=== PATIENT | female | born 1985 | race Caucasian/White ===

== ENCOUNTER 2018-12-29 12:38 | Outpatient (CLI) | payer BC, SELFPAY ==
--- NOTE | 2018-12-29 12:40 | DI.RAD_ITS ---
SYMPTOMS/DIAGNOSIS: RT SIDED CRACKLES, COUGH, R05 PA AND LATERAL CHEST: The heart is normal in size. The lungs are clear. The mediastinal structures and pleura appear intact. CONCLUSION: Normal chest.
== END 2018-12-29 12:58 ==
PROVIDERS: PCP Naturopath; Visit Provider Naturopath
DX: R05 Cough (principal); R09.89 Other specified symptoms and signs involving the circulatory and respiratory systems
CPT/HCPCS: 71046

== ENCOUNTER 2019-01-11 10:41 | Outpatient (REF) | payer SELFPAY | END 2019-01-11 11:01 | LOC: LBN 10:41 | PROVIDERS: PCP Naturopath; Visit Provider Naturopath | DX: Z00.00 Encounter for general adult medical examination without abnormal findings (principal) | CPT/HCPCS: 87480; 87510; 87660 ==

== ENCOUNTER 2019-01-11 15:25 | Outpatient (REF) | payer SELFPAY ==
--- NOTE | 2019-01-11 15:25 | PAPFT_PTH ---
PATIENT: Diamond Malloy LOC: [facility] U#:[id number] AGE/SX: 33/F ROOM: RE01/11/[address]: Yoly Roca : 1985 BED: DIS: 01/11/2019 SPEC #: [id number] RECD: 01/12/19 12:50 STATUS: JOE RENima #: [id number] CARMELINA: 01/11/19 15:[address]: Yoly Roca DEPT: [facility] Cytology RECD BY: Peterson Wallace ENTERED: 01/12/19 12:51 SP TYPE: PAPFT OTHR DR: Jefe Arguello Tissues: 1 - CX/ENDOCX FOR PAP SMEARS Procedures: PAP THIN PREP/UVM Screening HPV DNA PROBE Comments: [id number] (Chlamydia/GC)
[2019-01-15 13:32] LABS: Chlamydia Result Negative; GC Result Negative; Specimen Description SEE COMMENTS
== END 2019-01-11 15:45 ==
LOC: LBN 15:25
PROVIDERS: PCP Naturopath; Visit Provider Naturopath
DX: Z12.4 Encounter for screening for malignant neoplasm of cervix (principal); Z11.51 Encounter for screening for human papillomavirus (HPV); Z11.3 Encounter for screening for infections with a predominantly sexual mode of transmission
CPT/HCPCS: 87491; 87591; 88142; 87624

== ENCOUNTER 2021-03-25 02:29 | Outpatient (CLI) | payer BC, SELFPAY ==
[2021-03-25 11:18] LABS: Kit/Specimen SENT
[2021-03-25 11:22] LABS: Abs Immature Grans 0.02 10^3/uL (0.0-0.06); Absolute Basophil Count 0.04 10^3/uL (0.0-0.2); Absolute Eosinophil Count 0.06 10^3/uL (0.0-0.7); Absolute Lymphocyte Count 1.64 10^3/uL (1.2-3.4); Absolute Monocyte Count 0.51 10^3/uL (0.1-0.8); Absolute Neutrophil Count 4.79 10^3/uL (1.2-6.7); Basophils % 0.6; Eosinophils % 0.8; HCT 36.8 % (36.0-46.0); HGB 12.3 g/dL (11.2-15.7); Immature Grans % 0.3; Lymphocytes % 23.2; MCH 32.1 pg (27.0-33.0); MCHC 33.4 % (32.0-36.0); MCV 96.1 fL (80-95); MPV 9.5 fL (8.0-11.0); Monocytes % 7.2; Neutrophils % 67.9; Nucleated RBC 0 %; Platelet Count 213 10^3/uL (130-400); RBC 3.83 10^6/uL (3.93-5.22); RDW 12.7 % (11.7-14.6); RDW-SD 45.3 fL; WBC 7.06 10^3/uL (4.4-10.8)
[2021-03-25 12:10] LABS: TSH (W/Ref FT4) 0.69 uIU/mL (0.36-3.74)
[2021-03-26 10:35] LABS: Hepatitis B Surface Ag Negative (Negative)
[2021-03-26 10:48] LABS: Varicella IgG Antibody Positive (See Note)
[2021-03-26 10:51] LABS: Hepatitis C Ab w Rflx HCV PCR Negative (Negative)
[2021-03-26 10:52] LABS: Rubella IgG Ab (UVM) Positive (See Note)
[2021-03-26 10:55] LABS: HIV-1/2 Ag & Ab Screen Negative (Negative)
[2021-03-27 10:30] LABS: Syphilis Total Ab w/Reflex Nonreactive (Nonreactive)
[2021-03-31 17:36] LABS: Specimen WB Whole Blood
[2021-04-01 01:39] LABS: Result Summary NEGATIVE; Specimen WB Whole Blood
== END 2021-03-25 02:30 | disposition home or self-care (01) ==
LOC: LBO 02:29
PROVIDERS: PCP Naturopath; Visit Provider Advanced Practice Midwife
DX: Z34.91 Encounter for supervision of normal pregnancy, unspecified, first trimester (principal); Z11.4 Encounter for screening for human immunodeficiency virus [HIV]; Z11.59 Encounter for screening for other viral diseases; Z01.84 Encounter for antibody response examination; Z36.89 Encounter for other specified antenatal screening
CPT/HCPCS: 80307; 81329; 86787; 86803; 86850; 86900; 86901; 87340; 87389; 81220; 84443; 85025; 86762; 86780; 87086

== ENCOUNTER 2021-03-25 15:47 | Outpatient (REF) | payer BC, SELFPAY ==
[2021-03-25 12:32] LABS: *AMPHETAMINES SCREEN URINE Negative (Negative); *BARBITURATES SCREEN URINE Negative (Negative); *BENZODIAZEPINES SCREEN URINE Negative (Negative); Cannabinoids THC Negative (Negative); Cocaine Screen,Urine Negative (Negative); METHADONE URINE SCREEN Negative (Negative); OPIATES URINE SCREEN Negative (Negative)
[2021-03-25 12:35] LABS: Tricyclic Antidepressants Negative (Negative)
[2021-04-01 10:03] LABS: Buprenorphine Negative ng/mL (Cutoff: 5.0); Norbuprenorphine Negative ng/mL (Cutoff: 2.5)
== END 2021-03-25 15:48 | disposition home or self-care (01) ==
LOC: LBN 15:47
PROVIDERS: PCP Naturopath; Visit Provider Advanced Practice Midwife
DX: O09.521 Supervision of elderly multigravida, first trimester (principal); Z3A.11 11 weeks gestation of pregnancy
CPT/HCPCS: 80307; 87086

== ENCOUNTER 2021-04-21 12:08 | Outpatient (REF) | payer BC, SELFPAY ==
[2021-04-22 15:20] LABS: Chlamydia Result Negative (Negative); GC Result Negative (Negative)
== END 2021-04-21 12:09 | disposition home or self-care (01) ==
LOC: LBN 12:08
PROVIDERS: PCP Naturopath; Visit Provider Advanced Practice Midwife
DX: Z34.91 Encounter for supervision of normal pregnancy, unspecified, first trimester (principal); Z11.3 Encounter for screening for infections with a predominantly sexual mode of transmission; Z3A.15 15 weeks gestation of pregnancy
CPT/HCPCS: 87491; 87591

== ENCOUNTER 2021-07-23 02:47 | Outpatient (CLI) | payer BC, SELFPAY ==
[2021-07-23 13:07] LABS: HCT 39.6 % (36.0-46.0); HGB 13.1 g/dL (11.2-15.7); MCH 32.8 pg (27.0-33.0); MCHC 33.1 % (32.0-36.0); MCV 99.2 fL (80-95); MPV 9.7 fL (8.0-11.0); Platelet Count 197 10^3/uL (130-400); RBC 3.99 10^6/uL (3.93-5.22); RDW 12.6 % (11.7-14.6); RDW-SD 46.3 fL; WBC 11.37 10^3/uL (4.4-10.8)
[2021-07-23 13:17] LABS: Glucose,1 Hr (Glucola) 86 mg/dL (80-140)
== END 2021-07-23 02:48 | disposition home or self-care (01) ==
LOC: LBO 02:48
PROVIDERS: PCP Naturopath; Visit Provider Advanced Practice Midwife
DX: Z34.92 Encounter for supervision of normal pregnancy, unspecified, second trimester (principal)
CPT/HCPCS: 36415; 82950; 85027

== ENCOUNTER 2021-08-05 21:00 | Emergency (ER) | payer BC, MEDICAID, SELFPAY ==
[2021-08-05 21:01] VITALS: BP 122/67; PULSE 71; RESP 16; TEMP 36.5; O2SAT 99
[2021-08-05 21:07] VITALS: RESP 16
--- NOTE | 2021-08-05 21:15 | RT.EKG_ITS ---
APPROVED REPORT Exam: Resting ECG Reason for Exam: syncopal episode Patient Location: E HR:54 bpm ECG Measurements Heart Rate 54 AXIS ND 162 P 2 QRSd 80 QRS 39 QT 410 T 21 QTc 390 Conclusion Sinus bradycardia...rate< 60. Sinus. No STEMI. I have reviewed and interpreted ECG and agree with software generated interpretation.
[2021-08-05] MEDS: Lactated Ringers 500 ML IV (21:30)
--- NOTE | 2021-08-05 21:36 | ED.GENADUL_ITS ---
Discharge Plan Disposition Patient Disposition: HOME Condition: Stable Discharge Details Clinical Impression: Syncopal episodes Primary Care Provider: Yoly Roca ED Provider: Criss Bourne Home Meds and New Rx's Prescriptions: Continued prenat.vits,tanner,lwz-[id number]-kgvev Tablet 1 tab PO DAILY RF: 0 Discharge Instructions Instructions: Syncope (ED) Additional Instructions: Your exam and laboratory evaluation are reassuring here today. Your history is most concerning for syncopal episode, likely vasovagal event. Please continue to encourage hydration. Please keep upcoming appointment with women's wellness. If you develop chest pain, shortness of breath, headache, arthritis symptoms or other new/worsening symptoms please seek care urgently once again. Referrals: Yoly Roca [Primary Care Provider] - Discharge Data Discharge Date/Time-TO BE ENTERED AT DEPARTURE: 08/05/21 23:05 Medical Decision Making Patient is a pleasant 36-year-old female presents for chief complaint of loss of consciousness at home. Patient is 30 weeks gestation, G3, P2. Patient states that she was watching a on TV, watching placenta deliver, when she suddenly became lightheaded. States that she had an unusual sensation in both ears. Patient reports she has had syncopal episodes In the past. This was witnessed by her significant other as well as another couple. They lowered her to the ground. They noticed some abnormal movements including shaking her arms as well as clenching of her jaw. In total, they estimate that this episode lasted approximately 30 seconds. Patient states that when she first awoke she was able to speak with EMS providers. No postictal period. She reports that she is been having a normal . Denies any vaginal bleeding or discharge. No cramping. Is not having any pain, did not suffer any trauma. On exam, patient appears nontoxic. Vital signs are stable. Lungs are clear, normal cardiac exam. No neurological deficits noted. As expected given gestational age, no discomfort or trauma noted. Gestational heart rate was 150. Visible movements noted. Patient history is most consistent with a vasovagal syncopal event. With the brief abnormal movements, family has been concerned for potential seizure. However, she did have a prodromal symptoms as well as no postictal phase. This was brought on when she was watching a patient reported that she has not had not had food or drink recently. Glucose currently 89. I do not see indication for imaging at this time. However, will obtain baseline labs as well as EKG. Patient had another episode while here. Significant other reports she has difficulty with needles and was discussing the IV. She became hot and lightheaded. Heart rate dropped into the high 30s patient became hypotensive with a systolic in the 90s. Patient does report that her typical blood pressure runs low and heart rate is typically in the mid to high 50s. Symptoms resolved when supine. Cool cloth on head. Initial recurrent episode, will touch base with women's wellness. EKG reviewed by Dr. Sales. Bradycardic at 54. Other aivna not signficant abnormalities. Labs reviewed. CBC is stable. No significant abnormality on CMP. Consult with Dr. Mendenhall with women's wellness. Reviewed patient's history, presentation and recurrent symptoms. She advised that as history is most consistent with a vasovagal episode, patient does not need to stay in the hospital for continued monitoring. Discussed this with the patient and her significant other. She does have an appointment with women's wellness on Tuesday. Patient is hydrating and eating in the department. She is feeling significantly improved. She will avoid any further noxious external stimuli such as watching birthing videos. Strict return precautions were discussed. All of her questions and concerns were ad dressed and she is in agreement with this plan. HPI General Mode of arrival: EMS . Date/Time Provider Initiated Documentation: 08/05/21 21:28 . Limitations to Documentation: no limitations . Information obtained by: patient, family (Significant other at bedside), EMS, RN notes reviewed and old records reviewed . History of Present Illness 36 year old F presents to the emergency department with the chief complaint of Syncopal episode, described as mild (denies any pain), Patient started experiencing this minute(s) and it has been now resolved (had LOC for estimated 30 seconds, feels at baseline currently). No relieving factors improve symptom(s), Other factors that worsen symptoms (was watching birthing video at time of syncopal episode) . Patient notes syncope; denies confusion, chest pain, cough, fever/chills, headaches, nausea/vomiting, rash, shortness of breath and weakness. Patient did receive the following treatments prior to arrival, none Related Data Home Medications Medication Instructions Recorded Confirmed prenat.vits,tanner,hhc-etzi-ogouv 1 tab PO DAILY 06/03/21 11/19/21 Allergies Allergy/AdvReac Type Severity Reaction Status Date / Time No Known Allergies Allergy Verified 08/07/21 08:26 General Stated Complaint: Dizzy/Sync DANIEL: 2 Review of Systems Constitutional Constitutional: Reports as per HPI, Denies chills, Reports fatigue, Denies fever(s), Denies frequent falls and Denies weakness Eyes Eyes: Reports as per HPI, Denies blurry vision and Denies change in vision ENT Ears, Nose, Mouth, and Throat: Denies vertigo and Denies neck pain Cardiovascular Cardiovascular: Reports as per HPI, Denies chest pain, Reports lightheadedness (felt lightheaded prior to episode), Denies radiating jaw, neck or arm pain, Denies dyspnea and Denies dyspnea on exertion Respiratory Respiratory: Reports as per HPI, Denies chest congestion, Denies cough, Denies dyspnea and Denies dyspnea on exertion Gastrointestinal Gastrointestinal: Reports as per HPI, Denies abdominal pain, Denies change in bowel habits, Denies nausea and Denies vomiting Genitourinary Genitourinary: Reports as per HPI Musculoskeletal Musculoskeletal: Reports as per HPI, Denies back pain, Denies neck pain and Denies numbness Integumentary/Breasts Skin/Breast: Reports as per HPI and Denies rash Neurologic Neurologic: Reports as per HPI, Denies behavioral changes, Denies confusion, Denies vertigo, Denies frequent falls, Denies localized weakness, Denies numbness, Denies sensory deficit and Denies weakness Psychiatric Psychiatric: Denies behavioral changes and Denies confusion Endocrine Endocrine: Reports fatigue [facility] Active Problem List (Updated 08/07/21 @ 09:01 by Yoly Nassar CNM) Bradycardia (Acute) Syncopal episodes (Chronic) Family history of congenital heart disease (Acute) Advanced maternal age during in second trimester (Acute) (Acute) Positive test (Acute) Medical History (Updated 08/07/21 @ 09:01 by Yoly Nassar CNM) Contraception Family History Father Sleep apnea Mother Multiple sclerosis Social History Smoking/Tobacco Use Status: Never Smoking risk assessment performed?: Yes Substance use type: does not use Do you feel safe at home: Yes Do you feel safe in your relationship?: Yes History History 3 Para 2 Hx # Term Pregnancies 2 Multiple births 0 Hx # Pregnancies 0 Ectopic pregnancies 0 AB induced 0 Hx Number of Living Children 2 AB spontaneous 0 Past Pregnancies Del. Date GA/Weeks # Outcome Route Wgt Sex Labor Lgth Anesthes ia Location Prov Complic 08/20/09 39 No Successful vaginal 3231.846 g Male 15 hrs Anea 10/15/11 40 No Successful vaginal 3345.244 g Female 4 hrs Andra Delivery Date: 08/20/09 GBS+, PROM requiring pitocin, labor went fast. Unmedicated , no complications, Sandi Wan Delivery Date: 10/15/11 no complication, GBS neg, ScarlettSandi Randolph Exam Const General: cooperative, healthy appearing, uncomfortable, no acute distress, well developed and well groomed Nutritional Appearance: average body habitus and well nourished Orientation: alert, awake and oriented x3 HENMT Head: normal to inspection, no palpable skull fracture, normocephalic and atraumatic Ears: hearing grossly normal bilaterally, external ears normal and TM's normal bilaterally General nose exam: external nose normal Mouth: oral mucosae normal and moist mucous membranes Throat: posterior oropharynx normal Eyes General: appearance normal, both eyes and all related structures Alignment and Position: alignment normal Periorbital: periorbital findings normal Eyelids: eyelids normal Sclera: sclerae normal Cornea: corneas normal Pupils: PERRL EOM: EOM intact bilaterally Neck Neck: normal visual inspection, full ROM, no lymphadenopathy and no meningeal signs Resp Effort & Inspection: normal respiratory effort, able to speak in complete sentences and no respiratory distress Auscultation: clear to auscultation bilaterally, no rales, no rhonchi and no wheezes Cardio Rate: regular rate Rhythm: regular rhythm Heart Sounds: S1 normal and S2 normal GI Inspection: normal to inspection (normal for gestational age) Palpation: soft, not firm, no guarding, not rigid and nontender Percussion: normal to percussion Auscultation: normal bowel sounds Back/Spine/Pelvis Cervical Spine: normal cervical lordosis and cervical ROM normal Skin General skin exam: no rashes or lesions noted Neuro General: patient alert, patient awake and patient oriented x3 Cranial Nerves: CN's II-XI intact bilaterally Cognition: normal cognition Speech: speech normal Gait: normal gait Motor: muscle tone normal throughout, strength 5/5 throughout, no pronator drift, no movement abnormalities noted and no fasciculations Sensory Exam: no sensory deficits noted Coordination: rigrka-qn-[id number] test normal, svun-ce-fzpv test normal, Romberg test normal, Does not sway with eyes open and rapid alternating movement UE normal Extrem General: normal to inspection, capillary refill normal, no pedal edema and no calf tenderness Psych Appearance: grossly normal and well kempt Mental Status: mental status grossly normal Speech and Movement: speech and movement normal Course Vital Signs Vital signs: Vital Signs Temperature 36.5 C 08/05/21 21:01 Pulse 71 08/05/21 21:01 Respiratory Rate 16 08/05/21 21:01 Blood Pressure 122/67 08/05/21 21:01 Pulse Oximetry 99 08/05/21 21:01 Temperature 36.5 C 08/05/21 21:01 Pulse 71 08/05/21 21:01 Respiratory Rate 16 08/05/21 21:07 Respiratory Effort Non-Labored 08/05/21 21:07 Respiratory Depth Normal 08/05/21 21:07 Respiratory Pattern Normal 08/05/21 21:07 Blood Pressure 122/67 08/05/21 21:01 Pulse Oximetry 99 08/05/21 21:01 Pain Level 0 08/05/21 21:01
--- NOTE | 2021-08-05 21:50 | NUR.NOTE ---
Nursing Note: RN was applying stickers for EKG, patient reported that she began feeling warm and dizzy. Patient placed in supine position and notified Criss LUGO. Heart rate noted to drop as low as 39 BPM.
[2021-08-05 21:52] LABS: Absolute Basophil Count 0.04 10^3/uL (0.0-0.2); Absolute Eosinophil Count 0.06 10^3/uL (0.0-0.7); Absolute Lymphocyte Count 1.98 10^3/uL (1.2-3.4); Absolute Monocyte Count 0.73 10^3/uL (0.1-0.8); Absolute Neutrophil Count 6.46 10^3/uL (1.2-6.7); Basophils % 0.4; Eosinophils % 0.6; HCT 38.4 % (36.0-46.0); HGB 13.1 g/dL (11.2-15.7); Immature Grans % 1.1; Lymphocytes % 21.1; MCH 33.2 pg (27.0-33.0); MCHC 34.1 % (32.0-36.0); MCV 97.2 fL (80-95); MPV 10.3 fL (8.0-11.0); Monocytes % 7.8; Nucleated RBC 0 %; Platelet Count 215 10^3/uL (130-400); RBC 3.95 10^6/uL (3.93-5.22); RDW 12.3 % (11.7-14.6); RDW-SD 44.4 fL; WBC 9.37 10^3/uL (4.4-10.8)
[2021-08-05 22:21] LABS: ALT 23 U/L (14-59); AST 31 U/L (15-37); Alkaline Phosphatase 66 U/L (46-116); Anion Gap 7.5 mmol/L (3-11); BUN 11 mg/dL (7-18); Bilirubin, Total 0.2 mg/dL (0.2-1.0); CO2 28.5 mmol/L (21.0-32.0); CREATININE 0.6 mg/dL (0.55-1.02); Calcium 8.5 mg/dL (8.5-10.1); Chloride 106 mmol/L (98-107); Glucose 82 mg/dL (74-106); Magnesium 2.1 mg/dL (1.8-2.4); Potassium 3.9 mmol/L (3.5-5.1); Sodium 142 mmol/L (136-145); TSH 1.46 uIU/mL (0.36-3.74); Total Protein 6.5 g/dL (6.4-8.2)
[2021-08-05 22:58] VITALS: BP 107/57; PULSE 68; RESP 16; O2SAT 99
== END 2021-08-05 23:05 | disposition home or self-care (01) ==
PROVIDERS: Emergency Provider Physician Assistant; PCP Naturopath
DX: O26.892 Other specified pregnancy related conditions, second trimester (principal); R55 Syncope and collapse; Z3A.30 30 weeks gestation of pregnancy
CPT/HCPCS: 80053; 93005; 96360; 99284; 83735; 84443; 85025; 93010

== ENCOUNTER 2021-08-20 00:19 | Outpatient (CLI) | payer BC, MEDICAID, SELFPAY ==
--- OUTSIDE RECORDS SUMMARY | 2021-08-20 00:22 | XMS_ITS ---
:1985 External Reference #:[id number] Author Care Team Providers Name Role Phone Abelino Primary Care Provider Unavailable Allergies None recorded. Medications Name Status Start Date Stop Date ? ? ciprofloxacin 0.3 % eye drops Active ? No t available penicillin V potassium 250 mg tablet Active ? Not available Tri-Sprintec (28) 0.18 mg(7)/0.215 Active ? Not available mg(7)/0.25 mg(7)-35 mcg tablet Problems Name Status Onset Date Source ? Vitamin D Deficiency Active 08/20/2020 ? Folliculitis Active 08/20/2020 ? Hyperlipidemia Screening Active 08/20/2020 ? Trying to Conceive Active 08/20/2020 ? Procedures Date Name Performed by ? 12/29/2018 XR, Chest, 2 View Xray [facility] [address] [place], [place] [address] (Work Place) Results Lab Results Date Name Specimen Result Interpretation Description Value Range Status Address ? 04/05/2019 HIV-1 ? HIV non-reactive non-reactive F inal [facility], Ag/Ab Health Serum ([facility] en[facility] es): [address] Past Encounters 11/04/2020 Trying to Conceive Yoly Roca, [place]: [address] [place] [address], Ph. [phone] 08/06/2020 Folliculitis; Vitamin D Deficiency; Tryi ng to Conceive; Hyperlipidemia Screening Yoly Roca, [place]: [address] [place] [address], Ph. [phone] Social History None recorded. Vaccine List None recorded. Plan of Care Patient Instructions 1. continue taking pro 2 c aps 2xday 2. add b12/folate by Seroyal- chewable 1 tab/day 3. PAP and bloodwork look great- cholest juan and thyroid looks great Let me know if you need my assistance wi th any furture preganacy/or trying to conceive if needed If your partner would like to try a supp lement for support please have him call to make general health appointment to establish care. 1. ALlimax 450mg- 1 cap 3xday for f olliculitis Get Antibiotic Rx for skin- by Dr. Lee od 2. Designs for health- pro 2 cap s 2xday 3. nordic natural prodha 1000 1 cap 2xda y 4. labwork Reminders Provider Appointments None recorded. ? ? Lab None recorded. ? ? Referral None recorded. ? ? Procedures None recorded. ? ? Surgeries None recorded. ? ? Imaging None recorded. ? ? Vitals 08/06/2020 01:45PM ESTABLISHED PATIENT 45 Weight Blood Pressure 147 lbs 106/66 mm[Hg] 01/11/2019 02:45PM ESTABLISHED PATIENT 45 Height Weight BMI Blood Pressure 5 ft 5 in 134 lbs 22.3 kg/m2 110/66 mm[Hg] 10/11/2017 02:45PM NEW PATIENT 59 Height Weight BMI Blood Pressure 5 ft 4 in 138 lbs 23.7 kg/m2 104/68 mm[Hg]
--- NOTE | 2021-08-20 07:00 | DI.US_ITS ---
Exam(s) US OB LJ WEIGHT EXAM: US OB LJ WEIGHT CLINICAL HISTORY: interval growth,advanced maternal age,z34.90. TECHNIQUE: Transabdominal obstetrical ultrasound was performed. COMPARISON: US SURVEY*(P) from 05/18/2011 FINDINGS: There is a single viable intrauterine gestation with cardiac activity identified-143 bpm The fetus is presently in cephalic position . Amniotic fluid: There is a normal amount of amniotic fluid with an LJ of 15.9cm. Placental location: The placenta is anterior-fundal, grade 1,with no evidence of placenta previa. Dating parameters place this at approximately 33 weeks and 2 days gestational age, implying JATINDER of October 06, 2021. BPD measures 33 weeks and 5 days HC measures 33 weeks and 6 days AC measures 31 weeks 3 days FL measures 34 weeks and 2 days Estimated weight is 1044 gm-4 pounds 8 ounces Fetus is at the 46th percentile on the Hadlock scale. IMPRESSION:: Viable 3rd trimester gestation, as described above. Fetus is in cephalic position. Placenta anterior-fundal No evidence of placenta previa. Normal amount of amniotic fluid DATA REPOSITORY:
== END 2021-08-20 00:39 ==
PROVIDERS: PCP Naturopath; Visit Provider Advanced Practice Midwife
DX: O09.523 Supervision of elderly multigravida, third trimester (principal)
CPT/HCPCS: 76816

== ENCOUNTER 2021-08-25 09:46 | Outpatient (CLI) | payer BC, MEDICAID, SELFPAY ==
--- NOTE | 2021-08-25 09:45 | RT.EKG_ITS ---
APPROVED REPORT Exam: Resting ECG Reason for Exam: aguila Patient Location: O HR:74 bpm ECG Measurements Heart Rate 74 AXIS ID 133 P -6 QRSd 83 QRS 69 QT 367 T 31 QTc 408 Conclusion Sinus rhythm...normal P axis, V-rate 50- 99 Baseline wander in lead(s) V5 Normal Electrocardiogram
== END 2021-08-25 09:47 | disposition home or self-care (01) ==
LOC: DI.CARD 09:47
PROVIDERS: PCP Naturopath; Visit Provider Internal Medicine Cardiovascular Disease
DX: R00.1 Bradycardia, unspecified (principal)
CPT/HCPCS: 93010

== ENCOUNTER 2021-09-17 11:49 | Outpatient (REF) | payer BC, MEDICAID, SELFPAY ==
[2021-09-17 15:49] LABS: *AMPHETAMINES SCREEN URINE Negative (Negative); *BARBITURATES SCREEN URINE Negative (Negative); *BENZODIAZEPINES SCREEN URINE Negative (Negative); Cannabinoids THC Negative (Negative); Cocaine Screen,Urine Negative (Negative); METHADONE URINE SCREEN Negative (Negative); OPIATES URINE SCREEN Negative (Negative)
[2021-09-17 15:53] LABS: Tricyclic Antidepressants Negative (Negative)
[2021-09-25 12:23] LABS: Buprenorphine Negative ng/mL (Cutoff: 5.0); Norbuprenorphine Negative ng/mL (Cutoff: 2.5)
== END 2021-09-17 11:50 | disposition home or self-care (01) ==
LOC: LBN 11:49
PROVIDERS: PCP Naturopath; Visit Provider Advanced Practice Midwife
DX: Z34.93 Encounter for supervision of normal pregnancy, unspecified, third trimester (principal)
CPT/HCPCS: 80307; 87081

== ENCOUNTER 2021-10-16 07:26 | Outpatient (CLI) | payer MEDICAID, SELFPAY ==
[2021-10-16 11:40] VITALS: BP 114/74; PULSE 76
[2021-10-16 11:46] VITALS: BP 114/74; PULSE 76
[2021-10-16 11:54] VITALS: BP 114/74; PULSE 76
[2021-10-16 12:08] VITALS: BP 114/74; PULSE 76; TEMP 36.8
--- NOTE | 2021-10-16 12:12 | W.OBNST ---
Date of service: 10/16/21 Time of Service: 12:12 NST Evaluation Reason for NST Reasons for Nonstress Test: POSTDATES and ADVANCED MATERNAL AGE Gestational Age Gestational Age in Weeks and Days: 40 Weeks and 5Days Test and Monitor Explained Test/Monitor Explained: Test Explained, Monitor Explained and Patient Verbalized Understanding Vital Signs Blood Pressure: 114/74 Pulse: 76 Temperature: 98.2 F Urine Results Urine Protein: Negative Urine Ketones: Negative Urine Glucose: Negative Urine Blood: Negative NST Information Date on Monitor: 10/16/21 Time on Monitor: 11:43 Date off Monitor: 10/16/21 Time off Monitor: 12:06 Total Time on Monitor: 23 NST Interventions: PO Hydration Contraction Frequency: x1 NST Evaluation Patient States Movement: Present Variability: Moderate 6-25 bpm Accelerations: 15x15 Decelerations: None NST Results: Reactive Note NST Note Note: NST at 40w5d is reactive and reassuring. Will continue present management. RTO as scheduled or to call electric meter inspector exceptional children teacher assistant if signs of labor. LJ done today as well by Sandi Jin CNM. STACY NST Reviewed and Verified by: Yoly Cantu
[2021-10-16 12:14] VITALS: BP 114/74; PULSE 76; TEMP 36.8
== END 2021-10-16 12:32 | disposition home or self-care (01) ==
LOC: BCD 07:33 → OBS 11:25
PROVIDERS: PCP Naturopath; Visit Provider Advanced Practice Midwife
DX: O48.0 Post-term pregnancy (principal); O09.523 Supervision of elderly multigravida, third trimester; Z3A.40 40 weeks gestation of pregnancy
CPT/HCPCS: 59025

== ENCOUNTER 2021-10-17 20:42 | Observation (INO) | payer MEDICAID, SELFPAY ==
[2021-10-17 20:40] VITALS: BP 126/78; PULSE 72; RESP 17; TEMP 36.9
--- NOTE | 2021-10-17 20:44 | HPE_ITS ---
Date of service: 10/17/21 Time of Service: 20:44 Assessment and Plan Assessment and plan (1) Uterine contractions: Status: Acute Assessment and plan: 1. Observation status 2. Is scheduled for induction in 5 days 3. Will reassess in 2 hours or prn for progress 4. Offered to allow for sleep with reassessment in am if she desires, plan at this time is to reassess in 2 hours. 5. COVID screening done as patient has history of 4 hour labor. 6. Will delay blood work at this time, no IV access is required by history or current condition. STACY OB-HPI Labor/Delivery History of Present Illness Reason for Visit: RULE OUT LABOR Chief Complaint: Uterine Contractions. JATINDER Calculator Estimated Delivery Date Method Current WG Current Estimate 10/11/21 LMP (Certain) 40w 6d Other Estimates 10/12/21 Ultrasound #1 40w 5d Comments: Cuca and her , Rei, present for labor check. Reports some cramping contractions for past few hours. Denies LOF or bloody show. Baby has been active. STACY History of Present Expected Delivery Route/Plan - CNM FOB/partner - Rei Ribeiro (his second child, their first together) BG GBS negative Desires low intervention labor and , FOB might want to catch baby Pt nor FOB do not want to cut cord or see/take placenta Specific Issues/Plan 1. AMA, age 36 at delivery, accepts level 2 sono and MFM consult at [facility] [place] [facility] @ 19-20 wks 1a. 20 week anatomy US all WNL no structural abnormalities identified 1b. US at 32 weeks shows EFW 46%ile. LJ 15.9 2. Desires all genetic screening, drawn 03/25/21. CF/SMA negative; [place] low prob x3, female fetus 3. FOB and other relatives w/hx webbed toes, paternal half-brother w/hypoplastic left heart requiring surgery at . 3a. Pt accepts telegenetics appt @ [facility] [place] [place], level 2 sono and MFM consult, done 05/26/21; nml sono, notes scanned into EMR 3b. [facility] recommends 32 week scan for interval growth at 32 weeks. No other recommendations. 4. Pt and FOB are COVID vaccinated. 5. Syncopal episode at 31 wks, f/up with cardiology 08/25 5a. Cardiology visit reveals no concerns.. Review of Systems All systems reviewed & are unremarkable except as noted in HPI and below PFSH All Active Problems (Updated 10/17/21 @ 20:48 by Yoly Cantu CNM) Uterine contractions (Acute) Bradycardia (Acute) associated with syncopal event Syncopal episodes (Chronic) Family history of congenital heart disease (Acute) Advanced maternal age during in second trimester (Acute) (Acute) Medical History Contraception Positive test Family History Father Sleep apnea Mother Multiple sclerosis Social History Smoking/Tobacco Use Status: Never Smoking risk assessment performed?: Yes Substance use type: does not use Do you feel safe at home: Yes Do you feel safe in your relationship?: Yes History History 3 Para 2 Hx # Term Pregnancies 2 Multiple births 0 Hx # Pregnancies 0 Ectopic pregnancies 0 AB induced 0 Hx Number of Living Children 2 AB spontaneous 0 Past Pregnancies Del. Date GA/Weeks # Outcome Route Wgt Sex Labor Lgth Anesthes ia Location Prov Complic 08/20/09 39 No Successful vaginal 7 lb 2 oz Male 15 hrs Anea 10/15/11 40 No Successful vaginal 7 lb 6 oz Female 4 hrs Andra Delivery Date: 08/20/09 GBS+, PROM requiring pitocin, labor went fast. Unmedicated , no complications, Katie Wan Delivery Date: 10/15/11 no complication, GBS neg, Katie Pimentel Meds Allergies and Home Medications Allergies Allergy/AdvReac Type Severity Reaction Status Date / Time No Known Allergies Allergy Verified 10/17/21 20:46 Home Medications Medication Instructions Recorded Confirmed Type prenat.vits,tanner,ldn-fmms-trooo 1 tab PO DAILY 02/19/21 10/17/21 History Exam Physical Exam Vital signs: Pulse BP 72 126/78 10/17/21 20:40 10/17/21 20:40 Vital Signs Reviewed: Yes Constitutional Constitutional: no acute distress Detailed Labor and Delivery Exam Dilation: 2 Effacement (%): 75 station: -2 Position: ROT Cervix position: mid Consistency: medium Turk Score: Cervical Points Exam 0 1 2 3 Dilation Closed 1-2cm 3-4 cm 5-6cm Effacement 0-30% 40-50% 60-70% 80% Consistency Firm Medium Soft Station -3 -2 -1,0 +1,+2 Position Posterior Mid Anterior TURK Score(Cervical Ripeness Score): 6 Amniotic Membrane Status: Intact Contraction Frequency(min): 3 Contraction Duration(sec): 60 Contraction Intensity: Mild/Moderate Fetus A Heart Rate Baseline: 125 Monitor Accelerations: Absent Monitor Decelerations: None Variability: Moderate (6-25 BPM) Presentation: Vertex Categories: Category I Est. Weight: 7 lb HEENT Exam HEENT Exam: Normal Neck Exam Neck Exam: Not Done Chest/Brest/Axilla Exam Chest Exam: Normal Breast Exam Breast Exam: Not Done Respiratory Exam Respiratory Exam: Normal Cardiovascular Exam Cardiovascular Exam: Normal Abdominal Exam Abdominal Exam: Normal Rectal Exam Rectal Exam: Not Done Exam Exam: Normal Extremities Exam Extremities Exam: Normal Back/Spine/Pelvis Exam Back Exam: Not Done Pelvis Adequate: Yes Skin Exam Skin Exam: Normal Neurological Exam Neurological Exam: Normal Psychiatric Exam Psychiatric Exam: Normal Results Results Group Beta Strep: Negative Blood Type: O+ Rubella Status: Immune Varicella Immunity: Immune Risk Assessment Risk for Shoulder Dystocia Historical/Initial OB: NEGATIVE FOR: Pelvic Abnormality, Pre- BMI>30, Previous Shoulder Dystocia or Previous Macrosomia 40 Weeks: NEGATIVE FOR: EFW> 4500 gms, Maternal Weight Gain >40lb or Post Dates Increased Risk?: No Delivery Plan @ 36wks: spont labor, Delivery Plan @ 40 wks: IOL at 41w3d if not in active labor tonight. KH Risk for Pre-Eclampsia Daily Dose ASA Indicated: No Date Initiated/Initials: not indicated Yes, if one or more: NEGATIVE FOR: Hx Pre-E/Gest HTN, Chronic HTN, Multiple Gestation, Pre-gestational DM, Renal Disease, Systemic Lupus or APA Syndrome Yes, if 2 or more: POSITIVE FOR: Age>= 35 yrs; NEGATIVE FOR: Nulliparity, >10yr btwn pregnancies (daughter is 9 at conception), BMI>30, ethinicty, Mother/Sister w/ Pre-E or Previous IUGR Risk for Post- Hemorrhage Initial: NEGATIVE FOR: Multiple Gestation, Previous PPH, Known Clotting Deficiency, Grand Multiparity or Anticoagulation At Risk?: No Risks Reviewed Risks Reviewed Upon Admission: Yes
[2021-10-17 20:54] LABS: Source Nasal/Nares
[2021-10-17 21:32] LABS: COVID-19 PCR Negative (Negative)
--- NOTE | 2021-10-17 22:54 | W.PM.OBNL1 ---
Date of service: 10/17/21 Time of Service: 22:54 Pelvic Exam Comments: deferred Contractions Contraction Frequency(min): 2-4 Contraction Duration(sec): 60 Intensity: Mild Fetus A Monitor: Doppler Heart Rate Baseline: 125 Assessment and Plan Assessment and plan (1) Uterine contractions: Status: Acute Objective Temp Pulse Resp BP 98.4 F 72 17 126/78 10/17/21 20:40 10/17/21 20:40 10/17/21 20:40 10/17/21 20:40 Laboratory Results COVID-19 Source Nasal/Nares 10/17/21 20:35 SARS-CoV-2 (PCR) Negative (Negative) 10/17/21 20:35 Subjective Interval history since last seen: Cuca reports that contractions have not changed but feels they are too frequent to go home. she is going to try to rest and nursing staff will inform CNM when patient is awake and more uncomfortable. Interventions Other (will allow for rest and reassessment as indicated by patient status or in am. STACY)
[2021-10-17 23:09] VITALS: BP 112/66; PULSE 54; RESP 16; TEMP 36.5
--- NOTE | 2021-10-18 08:00 | W.PM.OBNL1 ---
Date of service: 10/18/21 Time of Service: 08:00 Pelvic Exam Comments: deferred Contractions Monitor Mode: Palpation Contraction Frequency(min): irregular Fetus A Assessment Note: will obtain heart tracing after patient has had breakfast and discussed options. STACY Assessment and Plan Assessment and plan (1) 41 weeks gestation of : Status: Acute Assessment and plan: 1. discussed expectant management as best option for potentially going into labor in next few days on her own 2. discussed anxiety related to previous labor being quick and that it has been 10 years and that may not be as likely this 3. discussed option of induction today if desired due to anxiety about laboring at home and being 41 weeks gestation, patient is considering this but is also hoping to avoid pitocin which may not be possible 4. risks, benefits and alternatives to induction as well as possible needed agents or methods reviewed, expectant management encouraged 5. Will notify OB physician infection prevention coordinator if patient decides to remain for induction vs going home or will discharge to home with education on signs of labor and when to call. 6. if patient is discharged, she has planned induction at 41w3d. STACY Objective Temp Pulse Resp BP 97.7 F 54 L 16 112/66 10/17/21 23:09 10/17/21 23:09 10/17/21 23:09 10/17/21 23:09 Laboratory Results COVID-19 Source Nasal/Nares 10/17/21 20:35 SARS-CoV-2 (PCR) Negative (Negative) 10/17/21 20:35 Subjective Interval history since last seen: Cuca feels well rested this morning. She reports she did wake a few times with painful contractions but not consistent. She admits to being very anxious about going home due to last labor being only 4 hours long. We discussed that she is not in labor at this time and her body seems to be preparing well for that. I reviewed that it is reasonable to go home and return with active labor or SROM and that no exam this morning would be necessary as she slept through the night unmedicated. She is asking about possibly remaining for induction of labor vs going home. We discussed that if she feels that would decrease her anxiety it is possible to do that but as she is hoping to avoid pitocin, I did talk with her that I cannot promise if she stays for induction that she will not require pitocin for labor. She and Rei will talk over the options and inform us their desires. Risks and benefits of IOL have already been reviewed with patient. STACY
--- NOTE | 2021-10-18 08:07 | NUR.NOTE ---
CNM and RN at bedside to discuss plan. Pt states contractions have become less frequent and less intense. Pt not in labor at this time. Pt given option to stay and move forward with induction or go home and come back when in labor/or for scheduled induction on 10/21. Pt and discussing options in private. will notify nurse when decision is made. Note:
--- NOTE | 2021-10-18 09:39 | DSE_ITS ---
Date of service: 10/18/21 Time of Service: 09:40 DS: Diagnosis Discharge Diagnosis (1) 41 weeks gestation of : Status: Acute Discharge Plan Disposition Patient Disposition: HOME Condition: Good Discharge Details Reason For Visit: RULE OUT LABOR Admit Date/Time: 10/17/21 20:42 Admit Provider: Yloy Cantu Attending Provider: Yoly Cantu Primary Care Provider: Yoly Roca Hospital Course Hospital Course: observation over night for irregular uterine contractions and patient's concern about her 10 years ago being quick. She has not had LOF or bloody show. Some old blood on toilet paper this morning after voiding but none since. She is scheduled for IOL on 10/22 at 41w3d. FHR tracing is CAT I. Last VE /. Home Meds and New Rx's Prescriptions: Continued prenat.vits,tanner,[id number] Tablet 1 tab PO DAILY RF: 0 Discharge Instructions Activity:: Activity as Tolerated Equipment/Supplies:: No Equipment Needed Diet:: As Tolerated Discharge Orders Discharge Orders: Discharge Order (Routine); Ordered 10/18/21 Ordered By: Yoly Cantu Procedure Procedures: Other (Observation for potential labor, not in active labor. Discharged to home with labor warning signs and will return as scheduled or prn. ) OB:DS Summary Summary Vaginal Delivery Method: Other (antepartum discharge. ) Contraception Discussed Contraception Discussed: No, Status at Discharge Functional status at discharge: independent ambulation Overall status at discharge: patient is back to baseline Mental Status: mental status grossly normal Speech and Movement: speech and movement normal Mood: congruent mood Affect: normal affect Time Spent with Patient providing and/or coordinating discharge services: Less than 30 minutes Quality: AMI Clinical Trial Participant: No Exam Physical Exam Vital signs: Temp Pulse Resp BP 97.7 F 54 L 16 112/66 10/17/21 23:09 10/17/21 23:09 10/17/21 23:09 10/17/21 23:09 Vital Signs Reviewed: Yes Constitutional Constitutional: no acute distress HEENT Exam HEENT Exam: Normal Neck Exam Neck Exam: Normal Respiratory Exam Respiratory Exam: Normal Cardiovascular Exam Cardiovascular Exam: Normal Fundal Exam Comment: Fundus size equals dates. Rectal Exam Rectal Exam: Not Done Extremities Exam Extremity Exam: Normal Back/Spine/Pelvis Exam Back Exam: Not Done Skin Exam Skin Exam: Normal Neurological Exam Neurological Exam: Normal Psychiatric Exam Psychiatric Exam: Normal PFSH All Active Problems (Updated 10/18/21 @ 08:05 by Yoly Cantu CNM) 41 weeks gestation of (Acute) Uterine contractions (Acute) Bradycardia (Acute) associated with syncopal event Syncopal episodes (Chronic) Family history of congenital heart disease (Acute) Advanced maternal age during in second trimester (Acute) (Acute) Medical History Contraception Positive test Family History Father Sleep apnea Mother Multiple sclerosis Social History Smoking/Tobacco Use Status: Never Smoking risk assessment performed?: Yes Substance use type: does not use Do you feel safe at home: Yes Do you feel safe in your relationship?: Yes History History 3 Para 2 Hx # Term Pregnancies 2 Multiple births 0 Hx # Pregnancies 0 Ectopic pregnancies 0 AB induced 0 Hx Number of Living Children 2 AB spontaneous 0 Past Pregnancies Del. Date GA/Weeks # Outcome Route Wgt Sex Labor Lgth Anesthes ia Location Prov Complic 08/20/09 39 No Successful vaginal 7 lb 2 oz Male 15 hrs Anea 10/15/11 40 No Successful vaginal 7 lb 6 oz Female 4 hrs Andra Delivery Date: 08/20/09 GBS+, PROM requiring pitocin, labor went fast. Unmedicated , no complications, Katie Wan Delivery Date: 10/15/11 no complication, GBS neg, Katie Pimentel DS: Data Vitals/I&O Vitals and I&O: Vital Signs Temperature 97.7 F 10/17/21 23:09 Pulse 54 L 10/17/21 23:09 Pulse Rhythm Regular 10/17/21 20:51 Respiratory Rate 16 10/17/21 23:09 Respiratory Depth Normal 10/17/21 20:51 Blood Pressure 112/66 10/17/21 23:09 Intake & Output 10/17/21 10/17/21 10/18/21 11:59 23:59 11:59 Weight 166 lb Data Completed and Pending Labs on day of discharge: Labs from last 24 hours 10/17/21 20:35 COVID-19 Source Nasal/Nares SARS-CoV-2 (PCR) Negative
--- NOTE | 2021-10-18 09:45 | NUR.NOTE ---
RN and CNM at bedside to re-discuss plan. Pt would like to go home and let her body go into labor on it's own at this time. RN will get NST before discharging home per CNM verbal Nursing Note:
== END 2021-10-18 10:00 | disposition home or self-care (01) | DRG 833 ==
PROVIDERS: Admitting Provider Advanced Practice Midwife; PCP Naturopath; Visit Provider Advanced Practice Midwife
DX: O47.1 False labor at or after 37 completed weeks of gestation (principal); O09.523 Supervision of elderly multigravida, third trimester; Z3A.40 40 weeks gestation of pregnancy; Z82.79 Family history of other congenital malformations, deformations and chromosomal abnormalities
CPT/HCPCS: 87635; 99211; G0378

== ENCOUNTER 2021-10-18 17:09 | Inpatient (IN) | payer MEDICAID, SELFPAY ==
[2021-10-18] VITALS (14 sets, daily range): BP systolic 111–129; BP diastolic 67–84; PULSE 65–102; RESP 16–20; TEMP 36.5–37; O2SAT 94–98
[2021-10-18 16:58] LABS: Source Nasal/Nares
--- NOTE | 2021-10-18 17:08 | HPE_ITS ---
Date of service: 10/18/21 Time of Service: 17:00 Assessment and Plan Assessment and plan (1) Active labor at term: Start date: 10/18/21 Start time: 17:00 Status: Acute Assessment and plan: labor began at 1200 today after a 24 hour latent phase. Patient is working well with contractions. Significant other, Rei, is p resent and supportive. Expect NVD. KH OB-HPI Labor/Delivery History of Present Illness Reason for Visit: RULE OUT LABOR Chief Complaint: Uterine Contractions. JATINDER Calculator Estimated Delivery Date Method Current WG Current Estimate 10/11/21 LMP (Certain) 41w 0d Other Estimates 10/12/21 Ultrasound #1 40w 6d Comments: Contractions became consistent and more intense at 1200 today, has had bloody show, no LOF. Baby has been active. STACY History of Present Expected Delivery Route/Plan - CNM FOB/partner - Rei Ribeiro (his second child, their first together) BG GBS negative Desires low intervention labor and , FOB might want to catch baby Pt nor FOB do not want to cut cord or see/take placenta Specific Issues/Plan 1. AMA, age 36 at delivery, accepts level 2 sono and MFM consult at [facility] @ 19-20 wks 1a. 20 week anatomy US all WNL no structural abnormalities identified 1b. US at 32 weeks shows EFW 46%ile. LJ 15.9 2. Desires all genetic screening, drawn 03/25/21. CF/SMA negative; [place] low prob x3, female fetus 3. FOB and other relatives w/hx webbed toes, paternal half-brother w/hypoplastic left heart requiring surgery at . 3a. Pt accepts telegenetics appt @ [facility], level 2 sono and MFM consult, done 05/26/21; nml sono, notes scanned into EMR 3b. [facility] recommends 32 week scan for interval growth at 32 weeks. No other recommendations. 4. Pt and FOB are COVID vaccinated. 5. Syncopal episode at 31 wks, f/up with cardiology 08/25 5a. Cardiology visit reveals no concerns.. Assessment: History Reviewed & Current Informed Consent Informed Consent: Other (normal labor and water if desired. STACY) Review of Systems All systems reviewed & are unremarkable except as noted in HPI and below PFSH All Active Problems (Updated 10/18/21 @ 17:12 by Yoly Cantu CNM) Active labor at term (Acute) 41 weeks gestation of (Acute) Uterine contractions (Acute) Bradycardia (Acute) associated with syncopal event Syncopal episodes (Chronic) Family history of congenital heart disease (Acute) Advanced maternal age during in second trimester (Acute) (Acute) Medical History Contraception Positive test Family History Father Sleep apnea Mother Multiple sclerosis Social History Smoking/Tobacco Use Status: Never Smoking risk assessment performed?: Yes Drug use: Never Substance use type: does not use Do you feel safe at home: Yes Do you feel safe in your relationship?: Yes History History 3 Para 2 Hx # Term Pregnancies 2 Multiple births 0 Hx # Pregnancies 0 Ectopic pregnancies 0 AB induced 0 Hx Number of Living Children 2 AB spontaneous 0 Past Pregnancies Del. Date GA/Weeks # Outcome Route Wgt Sex Labor Lgth Anesthes ia Location Prov Complic 08/20/09 39 No Successful vaginal 7 lb 2 oz Male 15 hrs Anea 10/15/11 40 No Successful vaginal 7 lb 6 oz Female 4 hrs Andra Delivery Date: 08/20/09 GBS+, PROM requiring pitocin, labor went fast. Unmedicated , no complications, Katie Wan Delivery Date: 10/15/11 no complication, GBS neg, Katie Pimentel Meds Allergies and Home Medications Allergies Allergy/AdvReac Type Severity Reaction Status Date / Time No Known Allergies Allergy Verified 10/18/21 17:11 Home Medications Medication Instructions Recorded Confirmed Type prenat.vits,tanner,[id number] 1 tab PO DAILY 02/19/21 10/18/21 History Exam Physical Exam Vital Signs Reviewed: Yes Constitutional Constitutional: no acute distress (working well with contractions. KH) Detailed Labor and Delivery Exam Dilation: 80 Effacement (%): 100 station: -1 Position: ROT Cervix position: anterior Consistency: soft Turk Score: Cervical Points Exam 0 1 2 3 Dilation Closed 1-2cm 3-4 cm 5-6cm Effacement 0-30% 40-50% 60-70% 80% Consistency Firm Medium Soft Station -3 -2 -1,0 +1,+2 Position Posterior Mid Anterior TURK Score(Cervical Ripeness Score): 12 Amniotic Membrane Status: Intact Contraction Frequency(min): 2-3 Contraction Duration(sec): 60 Contraction Intensity: Moderate/Strong Fetus A Heart Rate Baseline: 120 Monitor Accelerations: Absent Monitor Decelerations: None Variability: Moderate (6-25 BPM) Presentation: Vertex Categories: Category I Est. Weight: 7 lb HEENT Exam HEENT Exam: Normal Neck Exam Neck Exam: Normal Chest/Brest/Axilla Exam Chest Exam: Normal Breast Exam Breast Exam: Normal Respiratory Exam Respiratory Exam: Normal Cardiovascular Exam Cardiovascular Exam: Normal Abdominal Exam Abdominal Exam: Normal Rectal Exam Rectal Exam: Not Done Exam Exam: Normal Extremities Exam Extremities Exam: Normal Back/Spine/Pelvis Exam Back Exam: Normal Pelvis Adequate: Yes Skin Exam Skin Exam: Normal Neurological Exam Neurological Exam: Normal Psychiatric Exam Psychiatric Exam: Normal Results Results Group Beta Strep: Negative Blood Type: A+ Rubella Status: Immune Varicella Immunity: Immune Risk Assessment Risk for Shoulder Dystocia Historical/Initial OB: NEGATIVE FOR: Pelvic Abnormality, Pre- BMI>30, Previous Shoulder Dystocia or Previous Macrosomia 40 Weeks: NEGATIVE FOR: EFW> 4500 gms, Maternal Weight Gain >40lb or Post Dates Increased Risk?: No Delivery Plan @ 36wks: spont labor, Delivery Plan @ 40 wks: IOL at 41w3d if not in active labor tonight. KH Risk for Pre-Eclampsia Daily Dose ASA Indicated: No Date Initiated/Initials: not indicated Yes, if one or more: NEGATIVE FOR: Hx Pre-E/Gest HTN, Chronic HTN, Multiple Gestation, Pre-gestational DM, Renal Disease, Systemic Lupus or APA Syndrome Yes, if 2 or more: POSITIVE FOR: Age>= 35 yrs; NEGATIVE FOR: Nulliparity, >10yr btwn pregnancies (daughter is 9 at conception), BMI>30, ethinicty, Mother/Sister w/ Pre-E or Previous IUGR Risk for Post- Hemorrhage Initial: NEGATIVE FOR: Multiple Gestation, Previous PPH, Known Clotting Deficiency, Grand Multiparity or Anticoagulation At Risk?: No Counseled re: Active Management: Yes Risks Reviewed Risks Reviewed Upon Admission: Yes
[2021-10-18 17:36] LABS: COVID-19 PCR Negative (Negative)
[2021-10-18 17:50] LABS: HCT 41.7 % (36.0-46.0); MCH 31.7 pg (27.0-33.0); MCHC 33.6 % (32.0-36.0); MCV 94.6 fL (80-95); MPV 10.2 fL (8.0-11.0); Platelet Count 205 10^3/uL (130-400); RBC 4.41 10^6/uL (3.93-5.22); RDW 12.3 % (11.7-14.6); RDW-SD 42.7 fL
[2021-10-18] MEDS: Oxytocin 10 UNITS/ML VIAL IM (19:14)
--- NOTE | 2021-10-18 19:20 | W.OBDELIVERY ---
Date of service: 10/18/21 Time of Service: 19:20 OB Labor/ Delivery Information Baby A Delivery Delivery Method: Spontaneaous Presentation: Vertex Cephalic Position: Vertex Vertex Position: Right Occipital Posterior Cord Description-Baby A: 3 Vessels and Clamped/Cut Amniotic Fluid: Clear Delivery Outcome: Liveborn Infant Transferred: Remains with Mother Note: After spontaneous rupture of membranes, patient began to feel involuntary urge to push and brought baby to +3. Maternal position changed to Jose as head delivered slowly, nuchal cord times 1 loose was reduced and baby's left shoulder delivered with Jose maneuver and increased maternal pushing effort. Baby the delivered at 1902 into FOB's hands and was brought to maternal abdomen for skin to skin. With tactile stim and drying baby had lusty cry and good tone as well as improving pink color. score 6 at 1 minute and 9 at 5 minutes. After cord stopped pulsing, cord clamp was placed with second clamp placed and cord was cut by provider per their preference. Perineum and vagina intact, there is a hemostatic abrasion on right labia that is left unrepaired. Placenta delivered via paniagua mechanism, at 1909, intact. Fundus firms to U with massage, EBL 200cc. Sponge and instrument count are correct. Cord blood samples obtained. Placenta to be disposed of by hospital per patient's wish, she did not want to view placenta. Baby weight, 8lb5.8oz. They have not decided on a name yet, considering Joyce Davis. They plan to breast feed their baby. Expect normal PP course and discharge in 24-36 hours . Providers Nurse Middle Stitcher: Yoly Cantu Nurse: Beatriz Hebert Nurse: La Johnson Labor/Delivery Information Number of Babies in Womb: 1 Steroids Given: None Reason Steroids Not Administered: N/A Group Beta Strep: Negative Antibiotics Administered: No Rubella Status: Immune Blood Type: A+ Varicella Immunity: Immune Maternal Complications: None Shoulder Dystocia: No Stages of Labor Onset of Labor Date: 10/18/21 Onset of Labor Time: 16:43 Complete Dilatation Date: 10/18/21 Complete Dilatation Time: 18:45 Labor - Stage 1 Duration: 0 minutes ROM Baby A: 10/18/21 ROM Baby A: 18:35 ROM Total Time- Baby A: [id number] Delivery Date-Baby A: 10/18/21 Delivery Time-Baby A: 19:02 Labor Stage 2 Duration: 17 minutes Placenta Delivery Date-Baby A: 10/18/21 Placenta Delivery Time-Baby A: 19:09 Labor-Stage 3 Duration: 7 minutes Total Length of Labor-Baby A: 2 hours and 19 minutes Placenta Status: Delivered Baby A Infant Gender: Female Gestational Status: Term (39-41.6 wks) Gestational Age in Weeks/Days: 41 Weeks and 0 Days Score-1 Minute Interval(Baby A) Heart Rate-1 minute: 100 BPM or Greater Respiratory Effort- 1 minute: Slow Respiration/Weak Cry Muscle Tone-1 minute: Minimal Flexion/Extension Reflex Response-1 minute: Minimal Response Color-1 minute: Bluish Hands or Feet Total Score-1 minute: 6 Score-5 Minute Interval(Baby A) Heart Rate- 5 minute: 100 BPM or Greater Respiratory Effort-5 minute: Spontaneous/Strong Cry Muscle Tone-5 minute: Active Movement Reflex Response-5 minute: Prompt Response Color-5 minute: Bluish Hands or Feet Total Score- 5 minute: 9
[2021-10-18] MEDS: Ibuprofen 600 MG TAB PO (20:58)
[2021-10-18] MEDS: Acetaminophen 325 MG TAB 650 MG PO (20:58)
[2021-10-18] MEDS: Dibucaine 1% 28 GM TUBE TP (21:00)
[2021-10-18] MEDS: Hamamelis Leaf/Glycerin 100 EACH BOX PR (21:01)
[2021-10-19] MEDS: Acetaminophen 325 MG TAB 650 MG PO ×3 (02:55→15:02)
[2021-10-19] MEDS: Ibuprofen 600 MG TAB PO ×3 (02:55→15:02)
[2021-10-19 03:08] VITALS: BP 97/60; PULSE 69; RESP 18; TEMP 36.9
[2021-10-19 07:30] VITALS: BP 115/77; PULSE 59; RESP 16; TEMP 36.7; O2SAT 98
--- NOTE | 2021-10-19 09:06 | OBPPV_ITS ---
Date of service: 10/19/21 Time of Service: 09:06 Assessment and Plan Assessment and plan (1) care following vaginal delivery: Start date: 10/19/21 Start time: 09:09 Status: Acute Assessment and plan: 1. continue present management, meeting her own ADL's 2. planning discharge this evening if baby is able to go home 3. Planning Paragard at 6 week PP visit 4. will make 2 and 6 week PP visits with Nursing support. STACY (2) Lactating mother: Start date: 10/19/21 Start time: 09:10 Status: Acute Assessment and plan: 1. continue present management. STACY Subjective Subjective Patient comments: No complaints and Pain well controlled Patient's Mood: Happy and excited about as well as how well breast feeding is going baby status: Doing well and Nursing well [place] feeding status: Exclusively breast feeding Exam Physical Exam Vital signs: Temp Pulse Resp BP Pulse Ox 98.1 F 59 L 16 115/77 98 10/19/21 07:30 10/19/21 07:30 10/19/21 07:30 10/19/21 07:30 10/19/21 07:30 Vital Signs Reviewed: Yes Constitutional Constitutional: no acute distress and average body habitus HEENT Exam HEENT Exam: Normal Neck Exam Neck Exam: Not Done Breast Exam Bilateral: Breast Exam: Normal Nipple Exam: Normal Respiratory Exam Respiratory Exam: Normal Cardiovascular Exam Cardiovascular Exam: Normal Fundal Exam Fundus: Below Umbilicus and Firm Rectal Exam Rectal Exam: Not Done Exam Perineum: Intact and Normal Extremities Exam Extremity Exam: Normal Back/Spine/Pelvis Exam Back Exam: Not Done Skin Exam Skin Exam: Normal Neurological Exam Neurological Exam: Normal Psychiatric Exam Psychiatric Exam: Normal Results Hemoglobin/Hematocrit: Hgb 14.0 g/dL (11.2-15.7) 10/18/21 17:41 Hct 41.7 % (36.0-46.0) 10/18/21 17:41 Abnormal Lab Findings: Abnormal Labs 10/18/21 17:41 WBC 15.40 H
--- NOTE | 2021-10-19 15:18 | DSE_ITS ---
Date of service: 10/19/21 Time of Service: 15:19 DS: Diagnosis Discharge Diagnosis (1) care following vaginal delivery: Status: Acute Asessment and Plan: 1. stable PP patient, continue present management 2. RTO 2 and 6 weeks PP 3. plan IUD (paragard) at 6 week PP visit 4. No intercourse until that time 5. To call CNM training and development professional with concerns related to fever, increased pain, heavy vaginal bleeding or prn. KH (2) Lactating mother: Status: Acute Asessment and Plan: 1. experienced breast feeding Mother 2. breast feeding well established 3. to keep appointments for weight checks 4. RTO 2 and 6 weeks PP. Discharge Plan Disposition Patient Disposition: HOME Condition: Good Discharge Details Reason For Visit: Term Labor Admit Date/Time: 10/18/21 17:09 Admit Provider: Yoly Cantu Attending Provider: Yoly Cantu Primary Care Provider: Yoly Roca Hospital Course Hospital Course: Patient arrived for admission in active labor 8 cm and progressed to fully dilated and delivery on 10/18/21 at 1902. Live female. Normal PP course, no complications in labor or delivery. Home Meds and New Rx's Prescriptions: New ibuprofen 600 mg Tablet 600 mg PO Q6H PRN PRNQty: 90 RF: 0 acetaminophen [Tylenol] 325 mg capsule 650 mg PO Q6H PRNQty: 90 RF: 0 Continued prenat.vits,tanner,lob-[id number] Tablet 1 tab PO DAILY RF: 0 Discharge Instructions Stand Alone Forms: BC Instructions, BC Post Vaginal Deliver Activity:: Activity as Tolerated Equipment/Supplies:: No Equipment Needed Diet:: As Tolerated Discharge Orders Discharge Orders: Discharge Order (Routine); Ordered 10/19/21 Ordered By: Yoly Cantu OB:DS Summary Summary Vaginal Delivery Method: Spontaneaous Episiotomy Description: None Laceration Description: None Laceration Extension: N/A complications OB DS: none Contraception Discussed Contraception Discussed: Yes (Plans Paragard 6 weeks PP. ), Jbphh Gender-Baby A: Female weight: 8 lb 5.865 oz Disposition of Baby A: Home Status at Discharge Functional status at discharge: independent ambulation Overall status at discharge: patient is back to baseline Mental Status: mental status grossly normal Speech and Movement: speech and movement normal Mood: congruent mood Affect: normal affect Time Spent with Patient providing and/or coordinating discharge services: Less than 30 minutes Quality: AMI Clinical Trial Participant: No Exam Physical Exam Vital signs: Temp Pulse Resp BP Pulse Ox 98.1 F 59 L 16 115/77 98 10/19/21 07:30 10/19/21 07:30 10/19/21 07:30 10/19/21 07:30 10/19/21 07:30 Vital Signs Reviewed: Yes Constitutional Constitutional: no acute distress and average body habitus HEENT Exam HEENT Exam: Normal Neck Exam Neck Exam: Normal Respiratory Exam Respiratory Exam: Normal Cardiovascular Exam Cardiovascular Exam: Normal Abdominal Exam Abdomen: Other (normal) Fundal Exam Fundus: Below Umbilicus and Firm Rectal Exam Rectal Exam: Normal Exam Perineum: Intact and Normal Extremities Exam Extremity Exam: Normal Back/Spine/Pelvis Exam Back Exam: Not Done Skin Exam Skin Exam: Normal Neurological Exam Neurological Exam: Normal Psychiatric Exam Psychiatric Exam: Normal PFSH All Active Problems Lactating mother (Acute) care following vaginal delivery (Acute) (Acute) Medical History 41 weeks gestation of Active labor at term Advanced maternal age during in second trimester Bradycardia associated with syncopal event Contraception Family history of congenital heart disease Positive test Syncopal episodes Family History Father Sleep apnea Mother Multiple sclerosis Social History Smoking/Tobacco Use Status: Never Smoking risk assessment performed?: Yes Drug use: Never Substance use type: does not use Do you feel safe at home: Yes Do you feel safe in your relationship?: Yes History History 3 Para 2 Hx # Term Pregnancies 2 Multiple births 0 Hx # Pregnancies 0 Ectopic pregnancies 0 AB induced 0 Hx Number of Living Children 2 AB spontaneous 0 Past Pregnancies Del. Date GA/Weeks # Outcome Route Wgt Sex Labor Lgth Anesthes ia Location Prov Complic 08/20/09 39 No Successful vaginal 7 lb 2 oz Male 15 hrs Anea 10/15/11 40 No Successful vaginal 7 lb 6 oz Female 4 hrs Andra Delivery Date: 08/20/09 GBS+, PROM requiring pitocin, labor went fast. Unmedicated , no complications, Katie Wan Delivery Date: 10/15/11 no complication, GBS neg, Katei Pimentel DS: Data Vitals/I&O Vitals and I&O: Vital Signs Temperature 98.1 F 10/19/21 07:30 Pulse 59 L 10/19/21 07:30 Pulse Rhythm Regular 10/19/21 07:30 Respiratory Rate 16 10/19/21 07:30 Respiratory Depth Normal 10/18/21 17:24 Blood Pressure 115/77 10/19/21 07:30 Blood Pressure Mean 89 10/19/21 07:30 Pulse Oximetry 98 10/19/21 07:30 Pain Level 5 10/19/21 08:57 Intake & Output 10/18/21 10/19/21 10/19/21 23:59 11:59 23:59 Output Total 1310 / 1310 400 / 400 Balance -1310 / -1310 -400 / -400 Weight 156 lb Output: Urine 1200 / 1200 400 / 400 Blood 110 / 110 Data Completed and Pending Labs on day of discharge: Labs from last 24 hours 10/18/21 10/18/21 10/18/21 17:41 17:41 16:30 WBC 15.40 H RBC 4.41 Hgb 14.0 Hct 41.7 MCV 94.6 MCH 31.7 MCHC 33.6 RDW 12.3 Plt Count 205 MPV 10.2 COVID-19 Source Nasal/Nares SARS-CoV-2 (PCR) Negative Patient ABO/Rh A Positive Antibody Screen NEGATIVE
== END 2021-10-19 19:30 | disposition home or self-care (01) | DRG 807 ==
PROVIDERS: Admitting Provider Advanced Practice Midwife; PCP Naturopath; Visit Provider Advanced Practice Midwife
DX: O75.89 Other specified complications of labor and delivery (principal); Z37.0 Single live birth; O69.81X0 Labor and delivery complicated by cord around neck, without compression, not applicable or unspecified; Z3A.41 41 weeks gestation of pregnancy; Z82.79 Family history of other congenital malformations, deformations and chromosomal abnormalities
CPT/HCPCS: 85027; 86850; 86900; 86901; 87635; J2590

== ENCOUNTER 2021-11-30 14:13 | Outpatient (REF) | payer MEDICAID, SELFPAY ==
--- NOTE | 2021-11-30 11:45 | PAPFT_PTH ---
PATIENT: Diamond Malloy LOC: [facility] U#:[id number] AGE/SX: 36/F ROOM: RE11/30/[address]: Yoly Cantu CNM : 1985 BED: DIS: 11/30/2021 SPEC #: [id number] RECD: 11/30/21 18:13 STATUS: JOE REQ #: [id number] CARMELINA: 11/30/21 11:[address]: Yoly Cantu DEPT: [facility] Cytology RECD BY: Nessa Lancaster ENTERED: 11/30/21 18:13 SP TYPE: PAPFT OTHR DR: Yoly Roca Tissues: 1 - CX/ENDOCX FOR PAP SMEARS Procedures: PAP THIN PREP/UVM Screening HPV DNA PROBE Comments: [id number]
== END 2021-11-30 14:14 | disposition home or self-care (01) ==
LOC: LBN 14:13
PROVIDERS: PCP Naturopath; Visit Provider Advanced Practice Midwife
DX: Z12.4 Encounter for screening for malignant neoplasm of cervix (principal); Z11.51 Encounter for screening for human papillomavirus (HPV)
CPT/HCPCS: 88142; 87624

== ENCOUNTER 2024-09-11 03:38 | Outpatient (CLI) | payer MEDICAID, SELFPAY ==
[2024-09-11 11:11] LABS: Panorama Kit Sent via Fed Ex
[2024-09-11 11:27] LABS: Abs Immature Grans 0.01 10^3/uL (0.0-0.06); Absolute Basophil Count 0.02 10^3/uL (0.0-0.2); Absolute Eosinophil Count 0.05 10^3/uL (0.0-0.7); Absolute Lymphocyte Count 1.65 10^3/uL (1.2-3.4); Absolute Monocyte Count 0.39 10^3/uL (0.1-0.8); Absolute Neutrophil Count 4.13 10^3/uL (1.2-6.7); Basophils % 0.3 %; Eosinophils % 0.8 %; HCT 38.3 % (36.0-46.0); HGB 13.6 g/dL (11.2-15.7); Immature Grans % 0.2 %; Lymphocytes % 26.4 %; MCH 32.3 pg (27.0-33.0); MCHC 35.5 % (32.0-36.0); MCV 91 fL (80-95); MPV 9.7 fL (8.0-11.0); Monocytes % 6.2 %; Neutrophils % 66.1 %; Platelet Count 248 10^3/uL (130-400); RBC 4.21 10^6/uL (3.93-5.22); RDW 12.2 % (11.7-14.6); RDW-SD 40.6 fL; WBC 6.25 10^3/uL (4.4-10.8)
[2024-09-11 21:17] LABS: HIV-1/2 Ag & Ab Screen Negative (Negative)
[2024-09-12 08:44] LABS: Hepatitis C Ab w Rflx HCV PCR Negative (Negative)
[2024-09-12 09:10] LABS: Hepatitis B Surface Ag Negative (Negative)
[2024-09-13 10:08] LABS: Rubella IgG Ab (UVM) Positive (See Note); Varicella IgG Antibody Positive (See Note)
[2024-09-14 23:55] LABS: Syphilis IgG w/Reflex Nonreactive (Nonreactive)
== END 2024-09-11 03:39 | disposition home or self-care (01) ==
LOC: LBO 03:39
PROVIDERS: PCP Naturopath; Visit Provider Advanced Practice Midwife
DX: Z34.91 Encounter for supervision of normal pregnancy, unspecified, first trimester (principal)
CPT/HCPCS: 36415; 86787; 86803; 86850; 86900; 86901; 87340; 87389; 85025; 86762; 86780

== ENCOUNTER 2024-09-11 11:52 | Outpatient (REF) | payer MEDICAID, SELFPAY ==
[2024-09-13 12:17] LABS: Chlamydia Result Negative (Negative); GC Result Negative (Negative)
== END 2024-09-11 11:53 | disposition home or self-care (01) ==
LOC: LBN 11:52
PROVIDERS: PCP Naturopath; Visit Provider Advanced Practice Midwife
DX: Z34.91 Encounter for supervision of normal pregnancy, unspecified, first trimester (principal)
CPT/HCPCS: 87491; 87591; 87086

== ENCOUNTER 2025-01-03 01:05 | Outpatient (CLI) | payer MEDICAID, SELFPAY ==
[2025-01-03 10:11] LABS: HGB 12.1 g/dL (11.2-15.7); MCH 32.7 pg (27.0-33.0); MCHC 33.6 % (32.0-36.0); MCV 97 fL (80-95); MPV 9.5 fL (8.0-11.0); Platelet Count 204 10^3/uL (130-400); RDW 12.5 % (11.7-14.6); RDW-SD 44.7 fL; WBC 10.06 10^3/uL (4.4-10.8)
[2025-01-03 10:21] LABS: Glucose,1 Hr (Glucola) 91 mg/dL (80-140)
== END 2025-01-03 01:06 | disposition home or self-care (01) ==
LOC: LBO 01:06
PROVIDERS: Advanced Practice Midwife; PCP Naturopath; Visit Provider Advanced Practice Midwife
DX: Z34.92 Encounter for supervision of normal pregnancy, unspecified, second trimester (principal)
CPT/HCPCS: 36415; 82950; 85027

== ENCOUNTER 2025-01-03 09:39 | Outpatient (CLI) | payer MEDICAID, SELFPAY ==
[2025-01-03 09:43] VITALS: BP 118/74; PULSE 81; TEMP 36.4
--- NOTE | 2025-01-03 11:30 | W.OBNST ---
Date of service: 01/03/25 Time of Service: 11:30 NST Evaluation Reason for NST Reasons for Nonstress Test: OTHER, SEE COMMENT Reason for NST Other: Decreased heart rate Gestational Age Gestational Age in Weeks and Days: 29 Weeks and 0Days Test and Monitor Explained Test/Monitor Explained: Test Explained and Monitor Explained Vital Signs Blood Pressure: 118/74 Pulse: 81 Temperature: 97.5 F Urine Results Urine Protein: Negative Urine Ketones: Negative Urine Glucose: Negative Urine Blood: Negative NST Information Date on Monitor: 01/03/25 Time on Monitor: 09:37 Date off Monitor: 01/03/25 Time off Monitor: 10:09 Total Time on Monitor: 32 NST Interventions: PO Hydration NST Evaluation Patient States Movement: Present FHR Baseline: 125 Variability: Moderate 6-25 bpm Accelerations: 15x15 Decelerations: None NST Results: Reactive Note Ultrasound Done: N/A. NST Note NST Reviewed and Verified by: Katie Jin
[2025-01-03 11:31] VITALS: BP 118/74; PULSE 81; TEMP 36.4
== END 2025-01-03 10:10 ==
LOC: BCD 09:43 → OBS 09:58
PROVIDERS: PCP Naturopath; Visit Provider Advanced Practice Midwife
DX: O36.8131 Decreased fetal movements, third trimester, fetus 1 (principal); Z3A.29 29 weeks gestation of pregnancy
CPT/HCPCS: 59025

== ENCOUNTER 2025-01-31 01:04 | Outpatient (CLI) | payer MEDICAID, SELFPAY ==
--- NOTE | 2025-01-31 07:00 | DI.US_ITS ---
Exam(s) US OB LJ WEIGHT EXAM: US OB JL WEIGHT CLINICAL HISTORY: 32 wk growth US,elderly multigravida,O09.529. TECHNIQUE: Transabdominal obstetrical ultrasound performed. COMPARISON: US US OB LJ WEIGHT from 08/20/2021 US POCUS EXAM from 08/28/2024 FINDINGS: Number of fetuses: 1 position: CEPHALIC Placental location: There is a grade 1 anterior placenta. No evidence of previa. BIOMETRIC DATA: BPD: 8.28cm, 33weeks 2days HC: 30.64cm, 34weeks 1day AC: 29.54cm, 33weeks 4days FL: 6.37cm, 32weeks 6days EFW: 2,184.93g, 4lb 13.72oz, 53.3% Composite Age: 33weeks 3days JATINDER: 03/18/2025 Heart Rate: 128bpm Amniotic fluid index: 13.25cm. The largest pocket measures 6.0 cm. IMPRESSION: 1. Single live intrauterine gestation as above. 2. Estimated weight is 2185gms. This is the 53rd percentile. 3. Amniotic fluid index is 13.3 cm. The largest pocket measures 6 cm. DATA REPOSITORY:
== END 2025-01-31 01:24 ==
LOC: DI 01:04
PROVIDERS: PCP Naturopath; Visit Provider Advanced Practice Midwife
DX: O09.523 Supervision of elderly multigravida, third trimester (principal); Z3A.34 34 weeks gestation of pregnancy
CPT/HCPCS: 76816

== ENCOUNTER 2025-02-28 09:54 | Outpatient (REF) | payer MEDICAID, SELFPAY | END 2025-02-28 09:55 | disposition home or self-care (01) | LOC: LBN 09:54 | PROVIDERS: PCP Naturopath; Visit Provider Advanced Practice Midwife | DX: Z34.93 Encounter for supervision of normal pregnancy, unspecified, third trimester (principal) | CPT/HCPCS: 87081 ==

== ENCOUNTER 2025-03-20 07:27 | Outpatient (CLI) | payer MEDICAID, SELFPAY ==
[2025-03-20 13:19] VITALS: BP 115/67; PULSE 78; TEMP 36.7
[2025-03-20 13:20] VITALS: BP 115/67; PULSE 78
--- NOTE | 2025-03-20 15:15 | DI.US_ITS ---
Exam(s) US OB LJ WEIGHT EXAM: US OB LJ WEIGHT CLINICAL HISTORY: advanced age. TECHNIQUE: Transabdominal obstetrical ultrasound was performed. COMPARISON: US POCUS EXAM from 03/20/2025 FINDINGS: There is a single viable intrauterine gestation with cardiac activity identified-130 bpm The fetus is presently in cephalic position . Amniotic fluid: There is a decreased amount of amniotic fluid with an LJ of 5.9cm. Placental location: The placenta is anterior grade 2,with no evidence of placenta previa. Dating parameters place this at approximately 38 weeks and 5 days gestational age, implying JATINDER of 03/29/2025. BPD measures 38 weeks and 3 days HC measures 39 weeks and 1 day AC measures 37 weeks and 5 days FL measures 39 weeks and 2 days Estimated weight is 3453 gm-7 pounds 10 ounces Fetus is at the 38th percentile on the Hadlock scale. IMPRESSION:: Viable 3rd trimester gestation, as described above. DATA REPOSITORY:
--- NOTE | 2025-03-20 17:58 | W.OBNST ---
Date of service: 03/20/25 Time of Service: 14:00 NST Evaluation Reason for NST Reasons for Nonstress Test: ADVANCED MATERNAL AGE Gestational Age Gestational Age in Weeks and Days: 39 Weeks and 6Days Test and Monitor Explained Test/Monitor Explained: Test Explained and Monitor Explained Vital Signs Blood Pressure: 115/67 Pulse: 78 Temperature: 98.1 F Urine Results Urine Protein: Negative Urine Ketones: Negative Urine Glucose: Negative Urine Blood: Negative NST Information Date on Monitor: 03/20/25 Time on Monitor: 13:12 Date off Monitor: 03/20/25 Time off Monitor: 13:33 Total Time on Monitor: 21 NST Interventions: PO Hydration NST Evaluation Patient States Movement: Present FHR Baseline: 125 Variability: Moderate 6-25 bpm Accelerations: 15x15 Decelerations: None NST Results: Reactive Note Ultrasound Done: LJ (AMA) Total LJ: 5.3 Other Pertinent Findings: Heart Rate (present), Presentation (cephalic, ROP) and Placental Location (anterior) Coding for LJ w/NST: Completed Exam. NST Note Note: Low nml fluid, will send to DI for confirmation as this will trigger recommendation for IOL within the next 3 days Pt declines cvx exam NST reactive, breathing, movement and flexion noted during scan NST Reviewed and Verified by: Katie Jin
[2025-03-20 18:00] VITALS: BP 115/67; PULSE 78; TEMP 36.7
== END 2025-03-20 16:05 ==
LOC: BCD 07:44 → OBS 13:14
PROVIDERS: PCP Naturopath; Visit Provider Advanced Practice Midwife
DX: Z3A.39 39 weeks gestation of pregnancy (principal); O41.03X1 Oligohydramnios, third trimester, fetus 1; O09.513 Supervision of elderly primigravida, third trimester
CPT/HCPCS: 76816; 59025

== ENCOUNTER 2025-03-22 09:33 | Outpatient (CLI) | payer MEDICAID, SELFPAY ==
[2025-03-22 12:10] VITALS: BP 114/67; PULSE 81
--- NOTE | 2025-03-25 11:24 | W.OBNST ---
Date of service: 03/22/25 Time of Service: 13:00 NST Evaluation Reason for NST Reasons for Nonstress Test: OLIGOHYDRAMNIOS Gestational Age Gestational Age in Weeks and Days: 40 Weeks and 3Days Test and Monitor Explained Test/Monitor Explained: Test Explained, Monitor Explained and Patient Verbalized Understanding Vital Signs Blood Pressure: 114/67 Pulse: 81 NST Information Date on Monitor: 03/22/25 Time on Monitor: 11:20 Date off Monitor: 03/22/25 Time off Monitor: 12:00 Total Time on Monitor: 40 NST Interventions: None NST Evaluation Patient States Movement: Present FHR Baseline: 130 Variability: Moderate 6-25 bpm Accelerations: 15x15 Decelerations: None NST Results: Reactive Note Ultrasound Done: N/A. NST Note Note: Angelic is here for NST for AMA and oligohydramnios. Reactive NST. Diamond is planning IOL tomorrow. NST Reviewed and Verified by: Yoly Nassar
[2025-03-25 11:25] VITALS: BP 114/67; PULSE 81
== END 2025-03-22 12:10 ==
LOC: BCD 09:33 → OBS 11:43
PROVIDERS: PCP Naturopath; Visit Provider Advanced Practice Midwife
DX: O41.03X1 Oligohydramnios, third trimester, fetus 1 (principal); Z3A.40 40 weeks gestation of pregnancy; O09.523 Supervision of elderly multigravida, third trimester
CPT/HCPCS: 59025; G0378

== ENCOUNTER 2025-03-24 09:02 | Outpatient (CLI) | payer MEDICAID, SELFPAY ==
[2025-03-24 11:54] VITALS: BP 106/61; PULSE 75
[2025-03-24 11:55] VITALS: BP 106/61; PULSE 75; TEMP 37.1
--- NOTE | 2025-03-24 16:13 | W.OBNST ---
Date of service: 03/24/25 Time of Service: 13:00 NST Evaluation Reason for NST Reasons for Nonstress Test: POSTDATES, ADVANCED MATERNAL AGE and OLIGOHYDRAMNIOS Gestational Age Gestational Age in Weeks and Days: 40 Weeks and 3Days Test and Monitor Explained Test/Monitor Explained: Test Explained Vital Signs Blood Pressure: 106/61 Pulse: 75 Temperature: 98.8 F Urine Results Urine Protein: Negative Urine Ketones: Negative Urine Glucose: Negative Urine Blood: Negative NST Information Date on Monitor: 03/24/25 Time on Monitor: 11:55 Date off Monitor: 03/24/25 Time off Monitor: 12:55 Total Time on Monitor: 60 NST Interventions: None Contraction Frequency: irregular NST Evaluation Patient States Movement: Present FHR Baseline: 120 Variability: Moderate 6-25 bpm Accelerations: 15x15 Decelerations: None NST Results: Reactive Note Ultrasound Done: N/A. NST Note Note: Cvx 3-4/70-80% midpelvis and soft, vtx well applied @ -2/-3 station, intact membranes Membrane sweep performed at pt request and consent Pt declines IOL today, remains hopeful for spontaneous labor, would like LJ tomorrow (5 days from previous scan) Returns to unit ~1300 03/25/25 NST Reviewed and Verified by: Katie Jin
[2025-03-24 16:16] VITALS: BP 106/61; PULSE 75; TEMP 37.1
== END 2025-03-24 13:09 | disposition home health service (06) ==
LOC: BCD 09:18 → OBS 11:54
PROVIDERS: PCP Naturopath; Visit Provider Advanced Practice Midwife
DX: O48.0 Post-term pregnancy (principal); Z3A.40 40 weeks gestation of pregnancy
CPT/HCPCS: 59025

== ENCOUNTER 2025-03-25 07:27 | Outpatient (CLI) | payer MEDICAID, SELFPAY ==
[2025-03-25 12:46] VITALS: BP 113/72; PULSE 76; TEMP 36.8
[2025-03-25 13:15] VITALS: BP 113/72; PULSE 76
--- NOTE | 2025-03-25 14:53 | W.OBNST ---
Date of service: 03/25/25 Time of Service: 14:53 NST Evaluation Reason for NST Reasons for Nonstress Test: ADVANCED MATERNAL AGE Gestational Age Gestational Age in Weeks and Days: 40 Weeks and 4Days Test and Monitor Explained Test/Monitor Explained: Test Explained, Monitor Explained and Patient Verbalized Understanding Vital Signs Blood Pressure: 113/72 Pulse: 76 Temperature: 98.2 F Urine Results Urine Protein: Negative Urine Ketones: Negative Urine Glucose: Negative Urine Blood: Negative NST Information Date on Monitor: 03/25/25 Time on Monitor: 12:49 Date off Monitor: 03/25/25 Time off Monitor: 13:05 Total Time on Monitor: 16 NST Interventions: PO Hydration NST Evaluation Patient States Movement: Present FHR Baseline: 125 Variability: Moderate 6-25 bpm Accelerations: 15x15 Decelerations: None NST Results: Reactive Note Ultrasound Done: LJ Largest Vertical Pocket: 2.2 Total LJ: 5.7 Other Pertinent Findings: Heart Rate (116), Presentation (vtx) and Placental Location (anterior) Coding for LJ w/NST: Completed Exam. NST Note Note: IOL scheduled for 03/28/25 NST Reviewed and Verified by: Katie Jin
[2025-03-25 14:55] VITALS: BP 113/72; PULSE 76; TEMP 36.8
== END 2025-03-25 13:25 | disposition other institution (70) ==
LOC: BCD 07:27 → OBS 12:45
PROVIDERS: PCP Naturopath; Visit Provider Advanced Practice Midwife
DX: Z3A.40 40 weeks gestation of pregnancy (principal); O48.0 Post-term pregnancy; O09.513 Supervision of elderly primigravida, third trimester
CPT/HCPCS: 59025

== ENCOUNTER 2025-03-28 07:53 | Inpatient (IN) | payer MEDICAID, SELFPAY ==
[2025-03-28] VITALS (12 sets, daily range): BP systolic 116–200; BP diastolic 64–90; PULSE 72–95; RESP 17–18; TEMP 37–37.1; O2SAT 99
--- NOTE | 2025-03-28 16:54 | HPE_ITS ---
Date of service: 03/28/25 Time of Service: 16:54 Assessment and Plan Assessment and plan (1) Elderly multigravida, currently : Status: Acute (2) Normal labor: Status: Acute Assessment and plan: A: 39 yo @ 41 wks admitted for spontaneous onset labor Was followed @ 40 wks with AP surveillance, LJ 5.7 three days ago, EFW 7'10 Category 1 tracing, GBS negative, no increased risk for PPH, increased risk of SD due to hx mild SD with last delivery Afebrile, normotensive, coping well with contractions P: Admit to L&D, draw CBC and T&S Pt requests expectant management, intermittent auscultation Comfort measures as pt desires, anticipate OB-HPI Labor/Delivery History of Present Illness Reason for Visit: AMA and postdates, Induction of labor Chief Complaint: Uterine Contractions (contractions all day, gradually getting stronger, pink tinge to mucous earlier, no vomiting or diarrhea. Was scheduled for IOL this morning but she cancelled in expectation of spontaneous onset of labor.). JATINDER Calculator Estimated Delivery Date Method Current WG Current Estimate 03/21/25 Ultrasound #1 41w 0d Other Estimates 03/29/25 LMP (Certain) 39w 6d History of Present Expected Delivery Route/Plan - CNM FOB/partner - Rei Ribeiro (2nd child together, has 15 yo son) BG Unmedicated labor and , doesn't use tub or shower Pt plans surveillance but not IOL just due to her age- declines surveillance GBS negative Specific Issues/Plan 1. AMA age 39, cfDNA - low risk, will start low dose ASA, accepts [facility] level 2=nml & MFM consult 1a. MFM recommends 32wk growth, ECHO, weekly NST starting 36wk, IOL 39- 40wks. pt declines IOL 1b. Echo 12/05: small midmuscular VSD seen, likely to close spontaneously, no f/up needed per [facility] cardiology, 1c. Peds to be notified of echo findings. Notification sent to Dr. Mckeon 01/03, clears pt for delivery @ [facility] 1d. 32 week growth US- 53%ile, LJ 13. 1e. Prefers no induction unless medically indicated. testing offered and declined 2. FOB's half brother has Hypoplastic left heart Syndrome FOB w/syndactyly, accepts level 2 scan 3. 5P screen negative, CF/SMA carrier negative 4. History of syncope due to dehydration- none during this . Review of Systems Narrative: ROS completed and noncontributory other than HPI PFSH All Active Problems (Updated 03/28/25 @ 16:59 by Katie Jin) Normal labor (Acute) Elderly multigravida, currently (Acute) (Acute) Family history of congenital heart disease (Acute) FOB's half brother w/hypoplastic left heart, requiring surgery Medical History (Updated 03/28/25 @ 16:59 by Katie Jin) Lactating mother Attempted IUD removal, unsuccessful Bradycardia associated with syncopal event Syncopal episodes Contraception Family History Father Sleep apnea Mother Multiple sclerosis Social History Smoking/Tobacco Use Status: Never Smoking risk assessment performed?: Yes Drug use: Never Substance use type: does not use Do you feel safe at home: Yes Do you feel safe in your relationship?: Yes History History 4 Para 3 Hx # Term Pregnancies 3 Multiple births 0 Hx # Pregnancies 0 Ectopic pregnancies 0 AB induced 0 Hx Number of Living Children 3 AB spontaneous 0 Past Pregnancies Del. Date GA/Weeks # Preg Succ Route Wgt Sex Labor Lgth Anesth esia Location Prov Complic 08/20/09 39 No vaginal 7 lb 2 oz Male 15 hrs Anea 10/15/11 40 No vaginal 7 lb 6 oz Female 4 hrs Andra 10/18/21 41 No vaginal 8 lb 5.8 oz Female 2hrs 19 min LARISSA Salinas Delivery Date: 08/20/09 Last Updated by: Katie Jin GBS+, PROM, IOL with a little pitocin Reed Delivery Date: 10/15/11 Last Updated by: Katie Jin no complication Scarlett Delivery Date: 10/18/21 Last Updated by: Katie Jin shoulder delivered with Jose, 6/9 Joyce Azra Meds Allergies and Home Medications Allergies Allergy/AdvReac Type Severity Reaction Status Date / Time No Known Allergies Allergy Verified 03/14/25 13:34 Home Medications ?Medication ?Instructions ?Recorded ?Confirmed ?Type vitamins with calcium 1 tab PO DAILY #90 tabs 05/09/24 03/25/25 Rx no.72-iron 27 mg-folic acid 1 mg tablet aspirin 81 mg tablet,delayed 81 mg PO DAILY #90 tabs 1 11/12/23 03/25/25 Rx release Exam Physical Exam Vital signs: Temp Pulse Resp BP 98.8 F 73 18 119/74 03/28/25 16:49 03/28/25 16:41 03/28/25 16:49 03/28/25 16:41 Vital Signs Reviewed: Yes Constitutional Constitutional: mild distress, average body habitus and cooperative Detailed Labor and Delivery Exam Dilation: 6 Effacement (%): 90 station: -3 Cervix position: mid Consistency: soft Amniotic Membrane Status: Intact Contraction Frequency(min): q5-10 Contraction Intensity: Moderate Fetus A Heart Rate Baseline: 140 Monitor Accelerations: Present Monitor Decelerations: None Variability: Moderate (6-25 BPM) Categories: Category I Est. Weight: 7 lb 11.459 oz Est. Weight: 3500 gms HEENT Exam HEENT Exam: Normal Neck Exam Neck Exam: Normal Chest/Brest/Axilla Exam Chest Exam: Normal Breast Exam Breast Exam: Not Done Respiratory Exam Respiratory Exam: Normal Cardiovascular Exam Cardiovascular Exam: Normal Abdominal Exam Abdominal Exam: Normal (soft and nontender) Rectal Exam Rectal Exam: Normal Exam Exam: Normal Extremities Exam Extremities Exam: Normal Back/Spine/Pelvis Exam Back Exam: Normal Pelvis Adequate: Yes (proven to 8'5) Skin Exam Skin Exam: Normal Neurological Exam Neurological Exam: Normal Psychiatric Exam Psychiatric Exam: Normal Results Results Group Beta Strep: Negative Blood Type: A+ Rubella Status: Immune Varicella Immunity: Immune Risk Assessment Risk for Shoulder Dystocia Historical/Initial OB: POSITIVE FOR: Previous Shoulder Dystocia; NEGATIVE FOR: Pelvic Abnormality, Pre- BMI>30 or Previous Macrosomia 36 Weeks: NEGATIVE FOR: Current Gestational DM, EFW>4500gms or Maternal Weight Gain>40lbs 40 Weeks: POSTIVE FOR: Post Dates; NEGATIVE FOR: EFW> 4500 gms or Maternal Weight Gain >40lb Increased Risk?: Yes Delivery Plan @ 36wks: Delivery Plan @ 40 wks: , pt declining Induction Risk for Pre-Eclampsia Date Initiated/Initials: will start at 12 wks due to >age 40, JK Yes, if one or more: NEGATIVE FOR: Hx Pre-E/Gest HTN, Chronic HTN, Multiple Gestation, Pre-gestational DM, Renal Disease, Systemic Lupus or APA Syndrome Yes, if 2 or more: POSITIVE FOR: Age>= 35 yrs; NEGATIVE FOR: Nulliparity, >10yr btwn pregnancies, BMI>30, ethinicty, Mother/Sister w/ Pre-E or Previous IUGR Risk for Post- Hemorrhage Initial: NEGATIVE FOR: Multiple Gestation, Previous PPH, Known Clotting Deficiency, Grand Multiparity or Anticoagulation 36 Weeks: NEGATIVE FOR: Anemia, hgb<10, Low platelets(thrombocytopenia), Gestational HTN or Pre-E, Polyhydraminios or EFW>4500gms 40 Weeks: NEGATIVE FOR: Anemia, hgb<10, Low platelets (thrombocytopenia), Gestation HTN or Pre-E, Polyhydraminios or EFW>4500gms At Risk?: No Counseled re: Active Management: Yes Risks Reviewed Risks Reviewed Upon Admission: Yes
[2025-03-28 18:19] LABS: HCT 37.5 % (36.0-46.0); HGB 12.9 g/dL (11.2-15.7); MCH 31.7 pg (27.0-33.0); MCHC 34.4 % (32.0-36.0); MCV 92 fL (80-95); MPV 10.9 fL (8.0-11.0); Platelet Count 207 10^3/uL (130-400); RBC 4.07 10^6/uL (3.93-5.22); RDW 12.2 % (11.7-14.6); RDW-SD 41.0 fL; WBC 14.29 10^3/uL (4.4-10.8)
[2025-03-28] MEDS: Oxytocin 10 UNITS/ML VIAL IM (19:50)
[2025-03-28] MEDS: miSOPROStol 200 MCG TAB 600 MCG PO (19:51)
--- NOTE | 2025-03-28 20:00 | OBVDS_ITS ---
Date of service: 03/28/25 Time of Service: 20:00 OB Labor/ Delivery Information Baby A Delivery Delivery Method: Spontaneaous Presentation: Cephalic Cephalic Position: Vertex Vertex Position: Right Occipital Anterior Breech Position: N/A Cord Description-Baby A: 3 Vessels, Nuchal Cord (loose) and Reduced (overhead) Amniotic Fluid: Clear Quantitative Blood Loss: 350 Delivery Outcome: Liveborn Infant Transferred: Remains with Mother Note: Labor progressed spontaneously with urges to bear down at about 1900, found to fully dilated at 1915 with SROM at uncertain time but likely 1914 due to very scant amount of clear fluid seen dripping from introitus at this time and no forebag palpable across vtx @ +1 station. 2nd stage huddle completed, FHT's ranging from 110 to 130 per doptone checks, strong maternal pushing efforts on left sidelying then to supine with legs supported resulted in over intact perineum of vigorous female , loose nuchal cord reduced overhead and shoulders came with ease, mother reached down and received her as the torso and legs delivered. Pitocin 10 units IM given as a gush of blood appeared, cord clamped and cut at 2 minutes of age and cord blood collected, another gush of blood with cord lengthening observed, Holgu[place] placenta delivered intact with 3 VC, misoprostel 600 mcg PO given as precaution, fundus firm below umbilicus and lochia slowed to minimal flow, vulva and vagina inspected and are without laceration. Apgars 8/9, weight 3265 gms, strong family bonding observed. Providers Nurse Commercial Intern: Katie Jin Nurse: Makayla Goyal Nurse: Charlene Marrero Labor/Delivery Information Number of Babies in Womb: 1 Steroids Given: None Reason Steroids Not Administered: N/A Group Beta Strep: Negative Antibiotics Administered: No Rubella Status: Immune Blood Type: A+ Varicella Immunity: Immune Maternal Complications: None Shoulder Dystocia: No Stages of Labor Onset of Labor Date: 03/28/25 Onset of Labor Time: 03:00 Complete Dilatation Date: 03/28/25 Complete Dilatation Time: 19:19 Labor - Stage 1 Duration: 16 hours and 19 minutes ROM Baby A: 03/28/25 ROM Baby A: 19:15 ROM Total Time- Baby A: [id number] Delivery Date-Baby A: 03/28/25 Delivery Time-Baby A: 19:40 Labor Stage 2 Duration: 21 minutes Placenta Delivery Date-Baby A: 03/28/25 Placenta Delivery Time-Baby A: 19:44 Labor-Stage 3 Duration: 4 minutes Total Length of Labor-Baby A: 16 hours and 40 minutes Placenta Cultured: No Placenta Status: Delivered Baby A Gender: Female Gestational Status: Term (39-41.6 wks) Gestational Age in Weeks/Days: 41 Weeks and 0 Days weight: 7 lb 3.169 oz Weight Comment: 3265 gms Length-Baby A: 20 in Score-1 Minute Interval(Baby A) Heart Rate-1 minute: 100 BPM or Greater Respiratory Effort- 1 minute: Slow Respiration/Weak Cry Muscle Tone-1 minute: Active Movement Reflex Response-1 minute: Prompt Response Color-1 minute: Bluish Hands or Feet Total Score-1 minute: 8 Score-5 Minute Interval(Baby A) Heart Rate- 5 minute: 100 BPM or Greater Respiratory Effort-5 minute: Spontaneous/Strong Cry Muscle Tone-5 minute: Active Movement Reflex Response-5 minute: Prompt Response Color-5 minute: Bluish Hands or Feet Total Score- 5 minute: 9
[2025-03-28] MEDS: Hamamelis Leaf/Glycerin 100 EACH BOX PR (20:49)
[2025-03-28] MEDS: Dibucaine 1% 28 GM TUBE TP (20:49)
[2025-03-28] MEDS: Ibuprofen 600 MG TAB PO (20:50)
[2025-03-28] MEDS: Acetaminophen 325 MG TAB 650 MG PO (20:50)
[2025-03-29 00:34] VITALS: BP 112/72; PULSE 84; RESP 17; TEMP 36.8; O2SAT 99
[2025-03-29] MEDS: Acetaminophen 325 MG TAB 650 MG PO ×3 (05:16→17:43)
[2025-03-29] MEDS: Ibuprofen 600 MG TAB PO ×3 (05:17→17:42)
[2025-03-29 07:45] VITALS: BP 103/70; PULSE 74; RESP 20; TEMP 36.6; O2SAT 97
[2025-03-29] MEDS: Methylergonovine 0.2 MG TAB PO ×3 (10:55→19:30)
[2025-03-29 11:35] VITALS: BP 115/71; PULSE 61; RESP 18; TEMP 36.6; O2SAT 96
[2025-03-29 15:00] VITALS: BP 106/72; PULSE 61; RESP 18; TEMP 36.6; O2SAT 97
[2025-03-29] MEDS: Dibucaine 1% 28 GM TUBE TP (15:10)
--- NOTE | 2025-03-29 21:08 | W.PM.OBDISCH ---
Date of service: 03/29/25 Time of Service: 21:09 DS: Diagnosis Discharge Diagnosis (1) Term of female : Status: Acute Asessment and Plan: Caring for baby independently. Pain is managed well with oral analgesics. Voiding without difficulty. well. She passed a clump of small clots this morning. methergine 0.2 mg PO series was started and her fundus has remained firm and she passed a small clot this afternoon but has not had heavy flow. A - stable mother and baby , Post day 1, methergine series started this morning. P [facility] She was provided doses to complete 24- hour methergine series. Routine post instructions. [facility] Discharge Plan Disposition Patient Disposition: Home Condition: Good Discharge Details Reason For Visit: AMA and postdates, spont labor Admit Date/Time: 03/28/25 07:53 Admit Provider: Katie Jin Attending Provider: Katie Jin Primary Care Provider: Yoly Roca Home Meds and New Rx's Prescriptions: No Action aspirin 81 mg tablet,delayed release (DR/EC) 81 mg PO DAILY Qty: 90 8RF Rx Instructions: take one tablet daily alternating with 2 tablets every other day PNV,calcium [id number]-pncbf acid 27 mg iron- 1 mg tablet 1 tab PO DAILY Qty: 90 4RF Rx Instructions: give with food (meal/snack) Discharge Instructions Stand Alone Forms: BC Instructions, BC Post Vaginal Deliver Activity:: Activity as Tolerated Equipment/Supplies:: No Equipment Needed Diet:: As Tolerated Discharge Orders Discharge Orders: Discharge Order (Routine); Ordered 03/29/25 Ordered By: Yoly Nassar OB:DS Summary Summary Vaginal Delivery Method: Spontaneaous Episiotomy Description: None Laceration Description: None Laceration Extension: N/A Contraception Discussed Contraception Discussed: Yes Contraceptive Plan: Vasectomy, Infant Gender-Baby A: Female weight: 7 lb 3.169 oz Status at Discharge Functional status at discharge: independent ambulation Overall status at discharge: patient is back to baseline Mental Status: mental status grossly normal Speech and Movement: speech and movement normal Mood: congruent mood Affect: normal affect Exam Physical Exam Vital signs: Temp Pulse Resp BP Pulse Ox 97.9 F 61 18 106/72 97 03/29/25 15:00 03/29/25 15:00 03/29/25 15:00 03/29/25 15:00 03/29/25 15:00 Vital Signs Reviewed: Yes Constitutional Constitutional: no acute distress HEENT Exam HEENT Exam: Normal Respiratory Exam Respiratory Exam: Normal Cardiovascular Exam Cardiovascular Exam: Normal Fundal Exam Fundus: Below Umbilicus and Firm Extremities Exam Extremity Exam: Normal Skin Exam Skin Exam: Normal Psychiatric Exam Psychiatric Exam: Normal PFSH All Active Problems (Updated 03/29/25 @ 18:05 by Yoly Nassar CNM) Term of female (Acute) Lactating mother (Acute) Family history of congenital heart disease (Acute) FOB's half brother w/hypoplastic left heart, requiring surgery Medical History (Updated 03/29/25 @ 18:05 by Yoly Nassar CNM) Bradycardia associated with syncopal event Syncopal episodes Family History Father Sleep apnea Mother Multiple sclerosis Social History Smoking/Tobacco Use Status: Never Smoking risk assessment performed?: Yes Alcohol Intake: never Drug use: Never Substance use type: does not use Housing: house Do you feel safe at home: Yes Do you feel safe in your relationship?: Yes History History 4 Para 3 Hx # Term Pregnancies 3 Multiple births 0 Hx # Pregnancies 0 Ectopic pregnancies 0 AB induced 0 Hx Number of Living Children 3 AB spontaneous 0 Past Pregnancies Del. Date GA/Weeks # Preg Succ Route Wgt Sex Labor Lgth Anesthesia Location Prov Complic 08/20/09 39 No vaginal 7 lb 2 oz Male 15 hrs Anea 10/15/11 40 No vaginal 7 lb 6 oz Female 4 hrs Andra 10/18/21 41 No vaginal 8 lb 5.8 oz Female 2hrs 19 min LARISSA Salinas Delivery Date: 08/20/09 Last Updated by: Katie Jin GBS+, PROM, IOL with a little pitocin Reed Delivery Date: 10/15/11 Last Updated by: Katie Jin no complication Scarlett Delivery Date: 10/18/21 Last Updated by: Katie Jin shoulder delivered with Jose, 6/9 Joycemiguel Oquendo DS: Data Vitals/I&O Vitals and I&O: Vital Signs Temperature 97.9 F 03/29/25 15:00 Temperature Source Oral 03/29/25 15:00 Pulse 61 03/29/25 15:00 Pulse Rhythm Regular 03/29/25 07:45 Respiratory Rate 18 03/29/25 15:00 Respiratory Depth Normal 03/28/25 23:02 Blood Pressure 106/72 03/29/25 15:00 Blood Pressure Mean 83 03/29/25 15:00 Pulse Oximetry 97 03/29/25 15:00 Pain Level 3 03/29/25 15:00 Comment sitting up high throne position 03/28/25 18:45 Intake & Output 03/28/25 03/29/25 03/29/25 23:59 11:59 23:59 Output Total 770 / 770 1500 / 1500 Balance -770 / -770 -1500 / -1500 Weight 171 lb Output: Urine 150 / 150 1500 / 1500 Blood 620 / 620 Other: Urine Color Yellow Lexa Urine Appearance Clear Urine Odor None Comment Several clots at this time
== END 2025-03-29 21:08 | disposition home or self-care (01) | DRG 807 ==
PROVIDERS: Admitting Provider Advanced Practice Midwife; PCP Naturopath; Visit Provider Advanced Practice Midwife
DX: O48.0 Post-term pregnancy (principal); Z37.0 Single live birth; Z3A.41 41 weeks gestation of pregnancy; O69.81X0 Labor and delivery complicated by cord around neck, without compression, not applicable or unspecified
CPT/HCPCS: 85027; 86850; 86900; 86901; J2590

== ENCOUNTER 2025-06-25 12:58 | Outpatient (REF) | payer MEDICAID, SELFPAY | END 2025-06-25 12:59 | disposition home or self-care (01) | LOC: LBN 12:58 | PROVIDERS: PCP Naturopath; Visit Provider Advanced Practice Midwife | DX: N89.8 Other specified noninflammatory disorders of vagina (principal) | CPT/HCPCS: 87480; 87510; 87660 ==